=== PATIENT | female | born 1990 | race Caucasian/White ===

== ENCOUNTER → 2018-04-21 | Outpatient (CLI) | payer MEDICARE, MEDICAID ==
[2018-04-21 14:51] LABS: HEMOGLOBIN 11.3 G/DL (11.5-16.0); MEAN PLATELET VOLUME 10.4 FL (7.4-10.4); RED BLOOD COUNT 4.5 10^6/uL (4.35-5.85); RED CELL DISTRIBUTION WIDTH 17.2 % (10.0-14.5); WHITE BLOOD COUNT 9.9 10^3/uL (4.3-11.0)
[2018-04-21 15:08] LABS: ALANINE AMINOTRANSFERASE 21 U/L (0-55); ALKALINE PHOSPHATASE 227 U/L (40-136); BILIRUBIN,TOTAL 0.2 MG/DL (0.1-1.0); BUN/CREATININE RATIO 20; CALCIUM 9.6 MG/DL (8.5-10.1); CARBON DIOXIDE 22 MMOL/L (21-32); CHLORIDE 108 MMOL/L (98-107); CREATININE SERUM 0.79 MG/DL (0.60-1.30); GFR ESTIMATED > 60; GLUCOSE 100 MG/DL (70-105); SODIUM 141 MMOL/L (135-145); TOTAL PROTEIN 7.1 GM/DL (6.4-8.2)
== END ==
LOC: LAB 14:33
PROVIDERS: ATTEND Obstetrics & Gynecology
DX: N92.0 Excessive and frequent menstruation with regular cycle (principal); N92.6 Irregular menstruation, unspecified; Z68.43 Body mass index [BMI] 50.0-59.9, adult
CPT/HCPCS: 36415; 80053; 84443; 85027

== ENCOUNTER 2018-07-30 06:47 | Day surgery (SDC) | payer MEDICARE, MEDICAID ==
[~2018-07-30] VITALS: Ht 172.7 cm; Wt 136.7 kg
[~2018-07-30 06:47] MED LIST: ASCO500C17 PO; CHOL500061 PO; FERR325T18 PO; FLUT9.9S NS; LAMO200T3 PO; LEVO75TA6 PO; LISI10TA2 PO; LORA10TA7 PO; MELA1TAB20 PO; SERT100T PO; TRAZ150T72 PO; VALA10004 PO
[2018-07-30] MEDS ORDERED: BUPIVACAINE 0.25% 30 ML (SENSORCAINE) VIAL ONE (06:52)
[2018-07-30] MEDS ORDERED: HURRICAINE EXT TUBE (BENZOCAINE) ONE (07:01)
[2018-07-30] MEDS ORDERED: DEXAMETHASONE 10 MG/ML (DECADRON) 1 ML VIAL ONE (07:01)
[2018-07-30] MEDS ORDERED: proPOfol 200 MG/20 ML (DIPRIVAN) VIAL IV ONE (07:01)
[2018-07-30] MEDS ORDERED: LACTATED RINGERS 1,000 ML IV ONE ×2 (07:01→07:23)
[2018-07-30] MEDS ORDERED: LIDOCAINE PF 2% 5 ML (XYLOCAINE) VIAL ONE ×2 (07:01→07:07)
[2018-07-30] MEDS ORDERED: SEVOFLURANE (ULTANE) 15 ML INHAL SOLN ONE ×8 (07:01→09:38)
[2018-07-30] MEDS ORDERED: MIDAZOLAM 2 MG/2 ML (VERSED) VIAL ONE (07:02)
[2018-07-30] MEDS ORDERED: fentaNYL INJECTION 100 MCG/2 ML AMP ONE (07:02)
[2018-07-30] MEDS ORDERED: ATRACURIUM 50 MG/5 ML (TRACRIUM) IV ONE (07:04)
[2018-07-30] MEDS ORDERED: metroNIDAZOLE 500MG/100ML IVPB 100 ML ONE (07:13)
[2018-07-30] MEDS ORDERED: CLINDAMYCIN 900 MG/50 ML IVPB 50 ML IV ONE ×2 (07:13→07:30)
[2018-07-30 07:15] VITALS: BP 133/80
[2018-07-30] MEDS ORDERED: LACTATED RINGERS 1,000 ML IV PRN (07:23)
[2018-07-30] MEDS ORDERED: metroNIDAZOLE 500MG/100ML IVPB 100 ML IV ONE (07:30)
--- NOTE | 2018-07-30 07:50 | Progress Note-Pre Operative ---
Pre-Operative Progress Note H&P Reviewed The H&P was reviewed, patient examined and no changes noted. Date Seen by Provider: Jul 30, 2018 Time Seen by Provider: 07:50 Date H&P Reviewed: Jul 30, 2018 Time H&P Reviewed: 07:50 Pre-Operative Diagnosis: AUB, Mental handicap, BMI 49 GRICEL HEATH DO Jul 30, 2018 7:50 am
--- OUTSIDE RECORDS SUMMARY | 2018-07-30 07:50 | XMS REPORT ---
Author Author PERRYMAE Brewster Organization [facility] Address [address] [place] [address] Care Team Providers Care Radio Host Name Role Phone MAE PERRY Unavailable PROBLEMS Type Condition ICD9-CM Code [id number] Code Onset Dates Condition Status SNOMED Code Problem Seasonal allergic rhinitis due to pollen J30.1 Active 58606858 Problem Autism F84.0 Active 398718500 Problem Recurrent major depressive disorder, in partial remission F33.41 Active 14758253 Problem Adenoma determined by biopsy of liver D13.4 Active 059630928 Problem Body mass index (BMI) of 50-59.9 in adult Z68.43 Active 151636864 Problem Morbid (severe) obesity due to excess calories E66.01 Active 838663722 Problem Hirsutism L68.0 Active 076475104 Problem Essential hypertension I10 Active 65027574 Problem Seizure disorder G40.909 Active 630606016 Problem Acanthosis nigricans L83 Active 468481154 Problem Acquired hypothyroidism E03.9 Active 897372646 ALLERGIES Substance Reaction Event Type Date Status Cefaclor rash Drug Allergy March, Active ENCOUNTERS Encounter Location Date Diagnosis [facility] [address] [facility] [id number] [place] [address] [id number] Aug, [facility] [id number] [place] [address] 00943- 2225 May, Acute nasopharyngitis J00 and BMI 45.0-49.9, adult Z68.42 [facility] [id number] [place] [address] [id number] May, Dental examination Z01.20 [facility] [address] [place] [address] 13958- 6092 March, Essential hypertension I10 ; Acquired hypothyroidism E03.9 ; Recurrent major depressive disorder, in partial remission F33.41 ; Seizure disorder G40.909 ; Autism F84.0 ; Morbid (severe) obesity due to excess calories E66.01 ; Seasonal allergic rhinitis due to pollen J30.1 ; Adenoma determined by biopsy of liver D13.4 and Contact dermatitis, unspecified contact dermatitis type, unspecified trigger L25.9 [place] [id number] [place] [address] 90575- 6336 March, [place] [address] [address]- [address]86 March, Contact dermatitis, unspecified contact dermatitis type, unspecified trigger L25.9 and BMI 50.0-59.9, adult Z68.43 [place] [address] 7[address]71- 9164 March, [place] [address] 16761- 5466 Mar, [place] [address] 62799- 3339 Mar, Sore throat J02.9 ; Strep pharyngitis J02.0 and BMI 45.0- 49.9, adult Z68.42 [place] [id number] [place] [address] 73873- 2460 Jan, Seizure disorder G40.909 [place] [id number] [place] [address] 14909- 0062 Jan, [place] [address] [address] [id number] [place] [address] 48502- 8417 Jan, Diarrhea, unspecified type R19.7 [place] [address] 96396- 0728 Jan, Diarrhea, unspecified type R19.7 and BMI 50.0-59.9, adult Z68.43 [facility] [id number] [place] [address] 89749 -2959 12 Mar, 2018 Drug side effects T88.7XXA ; Diarrhea, unspecified type R19.7 and BMI 50.0-59.9, adult Z68.43 [place] [address] [place] [address] [id number]- 0949 Jan, [place] [address] [address]62- 2035 Jan, Dental examination Z01.20 [place] [address] 19836- 7802 06 Jan, 2018 Seasonal allergic rhinitis due to pollen J30.1 [place] [address] 14686- 8268 Jan, Acute non-recurrent maxillary sinusitis J01.00 and Acute suppurative otitis media of right ear without spontaneous rupture of tympanic membrane, recurrence not specified H66.001 [place] [address] 82073- 0664 Jan, Seizure disorder G40.909 [place] [address] 38182- 1310 Jan, Essential hypertension I10 ; Seizure disorder G40.909 ; Acquired hypothyroidism E03.9 ; Morbid (severe) obesity due to excess calories E66.01 ; Screening for diabetes mellitus Z13.1 ; Hirsutism L68.0 and Acanthosis nigricans L83 [place] [address] 12[address]- 6555 05 Jan, 2018 Essential hypertension I10 ; Seizure disorder G40.909 ; Acquired hypothyroidism E03.9 ; Autism F84.0 ; Recurrent major depressive disorder, in partial remission F33.41 ; Adenoma determined by biopsy of liver D13.4 ; Body mass index (BMI) of 50-59.9 in adult Z68.43 ; Morbid (severe) obesity due to excess calories E66.01 ; Seasonal allergic rhinitis due to pollen J30.1 ; Screening for diabetes mellitus Z13.1 ; Encounter for immunization Z23 ; Hirsutism L68.0 and Acanthosis nigricans L83 [facility] [address] [facility] [id number] [place] [address] Jan, IMMUNIZATIONS Vaccine Route Administration Date Status DEPO MEDROL 40 MG/ML IM Intramuscular April 24, 2018 Administered SOCIAL HISTORY Never Assessed REASON FOR VISIT c/o rash worsening and spreading more, 1 week ago, had a cream rx and it is not helping PLAN OF CARE Activity Details Follow Up 3 Months, prn Reason:CHM/HTN VITAL SIGNS Height 65 in 2018-04-24 Weight 300.6 lbs 2018-04-24 Temperature 98.4 degrees Fahrenheit 2018-04-24 Heart Rate 84 bpm 2018-04-24 Respiratory Rate 20 2018-04-24 BMI 50.02 kg/m2 2018-04-24 Blood pressure systolic 115 mmHg 2018-04-24 Blood pressure diastolic 84 mmHg 2018-04-24 MEDICATIONS Medication Instructions Dosage Frequency Start Date End Date Duration Status Lamictal 200 mg Orally Twice a day 1 tablet 12h Active Loratadine 10 mg Orally Once a day 1 tablet 24h Jan, Active Zoloft 100 mg Orally Once a day 2 tablets 24h Active Levothyroxine Sodium 75 MCG Orally Once a day 1 tablet on an empty stomach in the morning 24h Active Vitamin D 1000 UNIT Orally Once a day 1 tablet 24h Active Triamcinolone Acetonide 0.025 % Externally Twice a day 1 application to affected area 12h March, 10 days Active Melatonin 10 MG Orally at bedtime 1 tablet Active Ibuprofen 800 MG Orally Three times a day PRN 1 tablet with food or milk as needed Active Fluticasone Propionate 50 MCG/ACT Nasally Once a day 1 spray in each nostril 24h Jan, Active Clobetasol Propionate 0.05 % Externally Twice a day apply thin layer to rash 12h March, May, 07 days Active Valtrex 1 GM Orally as needed 1 tablet May, 30 days Active Lisinopril 10 MG Orally Once a day 1 tablet 24h Active Multi For Her Active Trazodone HCl 150 MG Orally at hs 2 Active RESULTS No Results PROCEDURES Procedure Date Ordered Result Body Site DEPO MEDROL 40 MG/ML April 24, 2018 THER/PROPH/DIAG INJ, SC/IM April 24, 2018 [facility] VISIT ESTABLISHED PATIENT April 24, 2018 INSTRUCTIONS MEDICATIONS ADMINISTERED No Known Medications MEDICAL (GENERAL) HISTORY Type Description Date Medical History autism Medical History IDD (special needs) Medical History migraine headaches Medical History seizures Medical History seasonal allergies Medical History liver adenomas- last CT 03/2016- scattered lesions right and left lobes Medical History hypertension Medical History Hypothyroidism Medical History depression Surgical History tonsillectomy and adenoidectomy Surgical History dilatation and curettage 2013 Hospitalization History Surgery(s)
--- OUTSIDE RECORDS SUMMARY | 2018-07-30 07:50 | XMS REPORT ---
Author Author PERRYMAE Brewster Organization [facility] Address [address] [place] [address] Care Team Providers Care Polytechnic Teacher Name Role Phone MAE PERRY Unavailable PROBLEMS Type Condition ICD9-CM Code VES49-MS Code Onset Dates Condition Status SNOMED Code Problem Seasonal allergic rhinitis due to pollen J30.1 Active 98666331 Problem Autism F84.0 Active 096252370 Problem Recurrent major depressive disorder, in partial remission F33.41 Active 02794988 Problem Adenoma determined by biopsy of liver D13.4 Active 615561962 Problem Body mass index (BMI) of 50-59.9 in adult Z68.43 Active 057762506 Problem Morbid (severe) obesity due to excess calories E66.01 Active 159449324 Problem Hirsutism L68.0 Active 379994848 Problem Essential hypertension I10 Active 99456580 Problem Seizure disorder G40.909 Active 375238462 Problem Acanthosis nigricans L83 Active 393067153 Problem Acquired hypothyroidism E03.9 Active 416694260 ALLERGIES No Information ENCOUNTERS Encounter Location Date Diagnosis [facility] [id number] [place] [address] [id number] Aug, [facility] [id number] [place] [address] 73504- 4176 May, Acute nasopharyngitis J00 and BMI 45.0-49.9, adult Z68.42 [facility] [address] [id number] May, Dental examination Z01.20 [facility] [address] [address]- [address] March, Essential hypertension I10 ; Acquired hypothyroidism E03.9 ; Recurrent major depressive disorder, in partial remission F33.41 ; Seizure disorder G40.909 ; Autism F84.0 ; Morbid (severe) obesity due to excess calories E66.01 ; Seasonal allergic rhinitis due to pollen J30.1 ; Adenoma determined by biopsy of liver D13.4 and Contact dermatitis, unspecified contact dermatitis type, unspecified trigger L25.9 [place] [id number] [place] [address] 49293- 7393 March, [place] [id number] [place] [address] 23487- 8583 March, Contact dermatitis, unspecified contact dermatitis type, unspecified trigger L25.9 and BMI 50.0-59.9, adult Z68.43 [place] [address] [address]32- 3655 March, [place] [id number] [place] [address] 71847- 9068 Mar, [place] [address] 70401- 9584 Mar, Sore throat J02.9 ; Strep pharyngitis J02.0 and BMI 45.0- 49.9, adult Z68.42 [place] [id number] [place] [address] 51634- 4975 Jan, Seizure disorder G40.909 [place] [id number] [place] [address] 00460- 6527 Jan, [place] [id number] [place] [address] 98717- 3554 Jan, Diarrhea, unspecified type R19.7 [place] [id number] [place] [address] 55831- 7482 Jan, Diarrhea, unspecified type R19.7 and BMI 50.0-59.9, adult Z68.43 [facility] [address] [place] [address] 69995 -0172 Jan, Drug side effects T88.7XXA ; Diarrhea, unspecified type R19.7 and BMI 50.0-59.9, adult Z68.43 [place] [id number] [place] [address] 99919- 2410 Jan, [place] [address] 98552- 3446 Jan, Dental examination Z01.20 [place] [address] 53150- 4631 06 Jan, 2018 Seasonal allergic rhinitis due to pollen J30.1 [place] [address] 84477- 9493 Jan, Acute non-recurrent maxillary sinusitis J01.00 and Acute suppurative otitis media of right ear without spontaneous rupture of tympanic membrane, recurrence not specified H66.001 [place] [address] 48325- 2418 Jan, Seizure disorder G40.909 [place] [address] 69319- 4142 Jan, Essential hypertension I10 ; Seizure disorder G40.909 ; Acquired hypothyroidism E03.9 ; Morbid (severe) obesity due to excess calories E66.01 ; Screening for diabetes mellitus Z13.1 ; Hirsutism L68.0 and Acanthosis nigricans L83 [place] [id number] [place] [address] 67103- 7466 05 Jan, 2018 Essential hypertension I10 ; [...] ; Hirsutism L68.0 and Acanthosis nigricans L83 [place] [address] [phone] Jan, IMMUNIZATIONS No Known Immunizations SOCIAL HISTORY Never Assessed REASON FOR VISIT PLAN OF CARE VITAL SIGNS MEDICATIONS Medication Instructions Dosage Frequency Start Date End Date Duration Status Triamcinolone Acetonide 0.025 % Externally Twice a day 1 application to affected area 12h 18 Mar, 2018 10 days Active RESULTS No Results PROCEDURES No Known procedures INSTRUCTIONS MEDICATIONS ADMINISTERED No Known Medications MEDICAL [...]
--- OUTSIDE RECORDS SUMMARY | 2018-07-30 07:50 | XMS REPORT ---
Author Author TORYSRIKANTH HERRERA Victoriano [facility] Address Unknown Care Team Providers Care Wildfire Prevention Specialist Name Role Phone SRIKANTH LERMA Unavailable PROBLEMS Type Condition ICD9-CM Code TXD00-DN Code Onset Dates Condition Status SNOMED Code Problem Autism F84.0 Active 763477082 Problem Essential hypertension I10 Active 15965658 Problem Seizure disorder G40.909 Active 073861591 Problem Body mass index (BMI) of 50-59.9 in adult Z68.43 Active 637303863 Problem Seasonal allergic rhinitis due to pollen J30.1 Active 52143871 Problem Recurrent major depressive disorder, in partial remission F33.41 Active 15496264 Problem Body mass index (BMI) of 45.0-49.9 in adult Z68.42 Active 181055164 Problem Adenoma determined by biopsy of liver D13.4 Active 141183733 Problem Acanthosis nigricans L83 Active 153814504 Problem Acquired hypothyroidism E03.9 Active 441177260 Problem Morbid (severe) obesity due to excess calories E66.01 Active 272840678 Problem Hirsutism L68.0 Active 884866377 ALLERGIES Substance Reaction Event Type Date Status Cefaclor rash Drug Allergy May, Active ENCOUNTERS Encounter Location Date Diagnosis [facility] [address] [facility] [id number] [id number] Aug, [facility] [address] [id number] [address] Jul, Seasonal allergic rhinitis due to pollen J30.1 ; Body mass index (BMI) of 45.0-49.9 in adult Z68.42 and Morbid (severe) obesity due to excess calories E66.01 [facility] [address] [id number] [address]- [address] May, Acute nasopharyngitis J00 and BMI 45.0-49.9, adult Z68.42 [facility] [address] [id number] [phone] May, 2018 Dental examination Z01.20 [place] [id number] [place] [address] 32071- 8554 March, Essential hypertension I10 ; Acquired hypothyroidism E03.9 ; Recurrent major depressive disorder, in partial remission F33.41 ; Seizure disorder G40.909 ; Autism F84.0 ; Morbid (severe) obesity due to excess calories E66.01 ; Seasonal allergic rhinitis due to pollen J30.1 ; Adenoma determined by biopsy of liver D13.4 and Contact dermatitis, unspecified contact dermatitis type, unspecified trigger L25.9 [place] [id number] [place] [address] 51956- 1596 March, [place] [id number] [place] [address] 30828- 3711 March, Contact dermatitis, unspecified contact dermatitis type, unspecified trigger L25.9 and BMI 50.0-59.9, adult Z68.43 [place] [id number] [place] [address] 16079- 6296 March, [place] [id number] [place] [address] 17078- 9252 Mar, [place] [id number] [place] [address] 78150- 2165 Mar, Sore throat J02.9 ; Strep pharyngitis J02.0 and BMI 45.0- 49.9, adult Z68.42 [place] [address] [place] [address] 52015- 8667 Jan, Seizure disorder G40.909 [place] [id number] [place] [address] 81667- 2666 Jan, [place] [id number] [place] [address] 88202- 7302 Jan, Diarrhea, unspecified type R19.7 [place] [id number] [place] [address] 81799- 5324 14 Jan, 2018 Diarrhea, unspecified type R19.7 and BMI 50.0-59.9, adult Z68.43 [facility] [id number] [place] [address] 78702 -2147 12 Jan, 2018 Drug side effects T88.7XXA ; Diarrhea, unspecified type R19.7 and BMI 50.0-59.9, adult Z68.43 [place] [id number] [place] [address] 73115- 6009 12 Jan, 2018 [place] [address] 27392- 5011 08 Jan, 2018 Dental examination Z01.20 [place] [address] 38089- 1760 06 Jan, 2018 Seasonal allergic rhinitis due to pollen J30.1 [place] [address] 94690- 7834 05 Jan, 2018 Acute non-recurrent maxillary sinusitis J01.00 and Acute suppurative otitis media of right ear without spontaneous rupture of tympanic membrane, recurrence not specified H66.001 [place] [id number] [place] [address] 27503- 2988 12 Jan, 2018 Seizure disorder G40.[address] [address]- [address]179 Jan, Essential hypertension I10 ; Seizure disorder G40.909 ; Acquired hypothyroidism E03.9 ; Morbid (severe) obesity due to excess calories E66.01 ; Screening for diabetes mellitus Z13.1 ; Hirsutism L68.0 and Acanthosis nigricans L83 [place] [id number] [place] [address] 12240- 9292 05 Jan, 2018 Essential hypertension I10 ; [...] ; Hirsutism L68.0 and Acanthosis nigricans L83 [facility] [address] [facility]] [id number] [place] [address]- 49[address] 02 Jan, 2018 IMMUNIZATIONS No Known Immunizations SOCIAL HISTORY Never Assessed REASON FOR VISIT GRAZYNA / FILLING - #31 PLAN OF CARE Activity Details Follow Up prn Reason:# 31 Dr Lerma would like to use [facility] VITAL SIGNS Height 65 in 2018-05-15 Blood pressure systolic 120 mmHg 2018-05-15 Blood pressure diastolic 70 mmHg 2018-05-15 MEDICATIONS Medication Instructions Dosage Frequency Start Date End Date Duration Status Lisinopril 10 MG Orally Once a day 1 tablet 24h Active Ibuprofen 800 MG Orally Three times a day PRN 1 tablet with food or milk as needed Active Multi For Her Active Levothyroxine Sodium 75 MCG Orally Once a day 1 tablet on an empty stomach in the morning 24h Active Fluticasone Propionate 50 MCG/ACT Nasally Once a day 1 spray in each nostril 24h Jan, Active Lamictal 200 mg Orally Twice a day 1 tablet 12h Active Melatonin 10 MG Orally at bedtime 1 tablet Active Triamcinolone Acetonide 0.025 % Externally Twice a day 1 application to affected area 12h March, 10 days Active Valtrex 1 GM Orally as needed 1 tablet May, 30 days Active Trazodone HCl 150 MG Orally at hs 2 30 Active Vitamin D 1000 UNIT Orally Once a day 1 tablet 24h Active Zoloft 100 mg Orally Once a day 2 tablets 24h Active Loratadine 10 mg Orally Once a day 1 tablet 24h 90 Active RESULTS No Results PROCEDURES Procedure Date Ordered Result Body Site COMP ORAL EVALUATION - NEW/EST PT May 15, 2018 INSTRUCTIONS MEDICATIONS ADMINISTERED No Known Medications [...] adenoidectomy Surgical History dilatation and curettage 2013 Surgical History colonoscopy/EGD 2018 Hospitalization History Surgery(s)
--- NOTE | 2018-07-30 07:51 | Discharge Inst-Women's Service ---
Discharge Inst-Women's Serv Depart Medication/Instructions New, Converted or Re-Newed RX: RX on Chart Consults/Follow Up Additional Follow Up: Yes Orders/Referrals Dr. Cristobal in 7-10 days and in 8 weeks Activity Activity: Activity as Tolerated Driving Instructions: No Driving for 1 Week NO SMOKING: NO SMOKING Nothing Inside Vagina: No Douching, No Golovin, No Tampons Diet Discharge Diet: No Restrictions Symptoms to Report to : Bleeding Excessive, Pain Increased, Fever Over 101 Degrees F, Vaginal Bleeding Increase, Questions/Concerns For Any Problems or Questions: Contact Your Physician Skin/Wound Care Infection Signs and Symptoms: Increased Redness, Foul Odor of Wound, Increased Drainage, Skin Itchy or Has a Rash, Increased Swelling, Temperature Above 101 F Operative Area Clean and Dry: Keep Incision Clean/Dry Stitches/Aleisha/Dermabond: Dermabond, Care of Stitches Bathing Instructions: GRICEL Beebe DO Jul 30, 2018 7:51 am
--- OUTSIDE RECORDS SUMMARY | 2018-07-30 07:51 | XMS REPORT ---
Author Author PERRYMAE Brewster Organization [facility] Address [address] [place] [address] Care Team Providers Care Injection Mold Technician Name Role Phone MAE PERRY Unavailable PROBLEMS Type Condition ICD9-CM Code MTT17-ZG Code Onset Dates Condition Status SNOMED Code Problem Seasonal allergic rhinitis due to pollen J30.1 Active 67775708 Problem Autism F84.0 Active 071503190 Problem Recurrent major depressive disorder, in partial remission F33.41 Active 82305645 Problem Adenoma determined by biopsy of liver D13.4 Active 930538579 Problem Body mass index (BMI) of 50-59.9 in adult Z68.43 Active 451501747 Problem Morbid (severe) obesity due to excess calories E66.01 Active 179394649 Problem Hirsutism L68.0 Active 805708823 Problem Essential hypertension I10 Active 82161102 Problem Seizure disorder G40.909 Active 774492532 Problem Acanthosis nigricans L83 Active 863683871 Problem Acquired hypothyroidism E03.9 Active 152057318 ALLERGIES No Information ENCOUNTERS Encounter Location Date Diagnosis [facility] [id number] [place] [id number] Aug, [facility] [id number] [place] [address] [id number] May, [facility] [id number] [place] [address] 38269- 4869 May, Acute nasopharyngitis J00 and BMI 45.0-49.[address], [address] [facility] [id number] [place] [address] [id number] May, Dental examination Z01.20 [facility] [address] [place] [address] 52474- 8894 25 May, 2018 Essential hypertension I10 ; Acquired hypothyroidism E03.9 ; Recurrent major depressive disorder, in partial remission F33.41 ; Seizure disorder G40.909 ; Autism F84.0 ; Morbid (severe) obesity due to excess calories E66.01 ; Seasonal allergic rhinitis due to pollen J30.1 ; Adenoma determined by biopsy of liver D13.4 and Contact dermatitis, unspecified contact dermatitis type, unspecified trigger L25.9 [place] [address] [address]- 3881 March, [place] [address] 83675- 1394 March, Contact dermatitis, unspecified contact dermatitis type, unspecified trigger L25.9 and BMI 50.0-59.9, adult Z68.43 [place] [id number] [place] [address] 91064- 2269 March, [place] [address] 38144- 0573 Mar, [place] [address] 17911- 8114 Mar, Sore throat J02.9 ; Strep pharyngitis J02.0 and BMI 45.0- 49.9, adult Z68.42 [place] [id number] [place] [address] 54217- 1222 Jan, Seizure disorder G40.909 [place] [id number] [place] [address] 94683- 0294 Jan, [place] [address] 82527- 2785 Jan, Diarrhea, unspecified type R19.7 [place] [address] 11336- 3941 Jan, Diarrhea, unspecified type R19.7 and BMI 50.0-59.9, adult Z68.43 [facility] [address] 8[address] -[address]84 Jan, Drug side effects T88.7XXA ; Diarrhea, unspecified type R19.7 and BMI 50.0-59.9, adult Z68.43 [place] [id number] [place] [address] 63635- 1347 Jan, [place] [address] 78264- 4755 08 Jan, 2018 Dental examination Z01.20 [place] [address] 19831- 1904 06 Jan, 2018 Seasonal allergic rhinitis due to pollen J30.1 [place] [address] 86366- 4849 05 Jan, 2018 Acute non-recurrent maxillary sinusitis J01.00 and Acute suppurative otitis media of right ear without spontaneous rupture of tympanic membrane, recurrence not specified H66.001 [place] [id number] [place] [address] 76484- 6992 Jan, Seizure disorder G40.909 [place] [address] 78557- 2739 Jan, Essential hypertension I10 ; Seizure disorder G40.909 ; Acquired hypothyroidism E03.9 ; Morbid (severe) obesity due to excess calories E66.01 ; Screening for diabetes mellitus Z13.1 ; Hirsutism L68.0 and Acanthosis nigricans L83 [place] [id number] [place] [address] 57580- 8021 05 Jan, 2018 Essential hypertension I10 ; [...] ; Hirsutism L68.0 and Acanthosis nigricans L83 [facility] [address] [facility] [id number] [place] [address] Jan, IMMUNIZATIONS No Known Immunizations SOCIAL HISTORY Never Assessed REASON FOR VISIT Prior Authorization PLAN OF CARE VITAL SIGNS MEDICATIONS Unknown Medications RESULTS No Results PROCEDURES No Known procedures [...]
--- OUTSIDE RECORDS SUMMARY | 2018-07-30 07:51 | XMS REPORT ---
Author Author PERRYMAE Brewster Organization [facility] Address [address] [place] [address] Care Team Providers Care Physician'S Assistant Name Role Phone MAE PERRY Unavailable PROBLEMS Type Condition ICD9-CM Code [id number] Code Onset Dates Condition Status SNOMED Code Problem Seasonal allergic rhinitis due to pollen J30.1 Active 40766205 Problem Autism F84.0 Active 804408886 Problem Recurrent major depressive disorder, in partial remission F33.41 Active 74118390 Problem Adenoma determined by biopsy of liver D13.4 Active 996976906 Problem Body mass index (BMI) of 50-59.9 in adult Z68.43 Active 775028619 Problem Morbid (severe) obesity due to excess calories E66.01 Active 813031015 Problem Hirsutism L68.0 Active 608861563 Problem Essential hypertension I10 Active 63494812 Problem Seizure disorder G40.909 Active 912137257 Problem Acanthosis nigricans L83 Active 071856213 Problem Acquired hypothyroidism E03.9 Active 891642300 ALLERGIES No Information ENCOUNTERS Encounter Location Date Diagnosis [facility] [id number] [place] [address] [id number] Aug, [facility] [id number] [place] [address] 13378- 4910 May, Acute nasopharyngitis J00 and BMI 45.0-49.9, adult Z68.42 [facility] [address] [id number] May, Dental examination Z01.20 [facility] [address] 15197- 1194 March, Essential hypertension I10 ; Acquired hypothyroidism E03.9 ; Recurrent major depressive disorder, in partial remission F33.41 ; Seizure disorder G40.909 ; Autism F84.0 ; Morbid (severe) obesity due to excess calories E66.01 ; Seasonal allergic rhinitis due to pollen J30.1 ; Adenoma determined by biopsy of liver D13.4 and Contact dermatitis, unspecified contact dermatitis type, unspecified trigger L25.9 [place] [id number] [place] [address] 10413- 7476 March, [place] [id number] [place] [address] 59184- 4010 March, Contact dermatitis, unspecified contact dermatitis type, unspecified trigger L25.9 and BMI 50.0-59.9, adult Z68.43 [place] [address] 53957- 0277 March, [place] [address] [place] [id number] [place] [address] 38332- 6693 Mar, [place] [address] 15963- 0953 Mar, Sore throat J02.9 ; Strep pharyngitis J02.0 and BMI 45.0- 49.9, adult Z68.42 [place] [id number] [place] [address] 62295- 3164 Jan, Seizure disorder G40.909 [place] [id number] [place] [address] 07884- 8527 Jan, [place] [id number] [place] [address] 39079- 7535 Jan, Diarrhea, unspecified type R19.7 [place] [id number] [place] [address] 26535- 7417 Jan, Diarrhea, unspecified type R19.7 and BMI 50.0-59.9, adult Z68.43 [facility] [address] [place] [address] 09136 -8363 Jan, Drug side effects T88.7XXA ; Diarrhea, unspecified type R19.7 and BMI 50.0-59.9, adult Z68.43 [place] [id number] [place] [address] 27463- 9980 Jan, [place] [address] 56157- 7845 Jan, Dental examination Z01.20 [place] [address] 81685- 8619 06 Jan, 2018 Seasonal allergic rhinitis due to pollen J30.1 [place] [address] 41222- 7253 Jan, Acute non-recurrent maxillary sinusitis J01.00 and Acute suppurative otitis media of right ear without spontaneous rupture of tympanic membrane, recurrence not specified H66.001 [place] [address] 63192- 6068 Jan, Seizure disorder G40.909 [place] [address] 19103- 3967 Jan, Essential hypertension I10 ; Seizure disorder G40.909 ; Acquired hypothyroidism E03.9 ; Morbid (severe) obesity due to excess calories E66.01 ; Screening for diabetes mellitus Z13.1 ; Hirsutism L68.0 and Acanthosis nigricans L83 [place] [id number] [place] [address] 23146- 9218 05 Jan, 2018 Essential hypertension I10 ; [...] ; Hirsutism L68.0 and Acanthosis nigricans L83 [place] [address] [phone]- 9011 Jan, IMMUNIZATIONS No Known Immunizations SOCIAL HISTORY Never Assessed REASON FOR VISIT referral PLAN OF CARE VITAL SIGNS MEDICATIONS Unknown [...]
--- OUTSIDE RECORDS SUMMARY | 2018-07-30 07:51 | XMS REPORT ---
Author Author PERRYMAE Brewster Organization [facility] Address [address] [place] [address] Care Team Providers Care Juice Weigher Name Role Phone MAE PERRY Unavailable PROBLEMS Type Condition ICD9-CM Code KCS39-MP Code Onset Dates Condition Status SNOMED Code Problem Seasonal allergic rhinitis due to pollen J30.1 Active 85368654 Problem Autism F84.0 Active 136392354 Problem Recurrent major depressive disorder, in partial remission F33.41 Active 85439954 Problem Adenoma determined by biopsy of liver D13.4 Active 577481191 Problem Body mass index (BMI) of 50-59.9 in adult Z68.43 Active 591030932 Problem Morbid (severe) obesity due to excess calories E66.01 Active 397454601 Problem Hirsutism L68.0 Active 921581708 Problem Essential hypertension I10 Active 70985209 Problem Seizure disorder G40.909 Active 916463135 Problem Acanthosis nigricans L83 Active 106660713 Problem Acquired hypothyroidism E03.9 Active 253793204 ALLERGIES No Information ENCOUNTERS Encounter Location Date Diagnosis [facility] [id number] [place] [address] [id number] Aug, [facility] [id number] [place] [address] 15729- 1800 May, Acute nasopharyngitis J00 and BMI 45.0-49.9, adult Z68.42 [facility] [address] [id number] May, Dental examination Z01.20 [facility] [address] 91695- 8823 March, Essential hypertension I10 ; Acquired hypothyroidism E03.9 ; Recurrent major depressive disorder, in partial remission F33.41 ; Seizure disorder G40.909 ; Autism F84.0 ; Morbid (severe) obesity due to excess calories E66.01 ; Seasonal allergic rhinitis due to pollen J30.1 ; Adenoma determined by biopsy of liver D13.4 and Contact dermatitis, unspecified contact dermatitis type, unspecified trigger L25.9 [place] [id number] [place] [address] 83147- 6261 March, [place] [id number] [place] [address] 41683- 5722 March, Contact dermatitis, unspecified contact dermatitis type, unspecified trigger L25.9 and BMI 50.0-59.9, adult Z68.43 [place] [address] 85788- 9683 March, [place] [id number] [place] [address] 60259- 4103 Mar, [place] [address] 14357- 7440 Mar, Sore throat J02.9 ; Strep pharyngitis J02.0 and BMI 45.0- 49.9, adult Z68.42 [place] [id number] [place] [address] 65275- 0520 Jan, Seizure disorder G40.909 [place] [id number] [place] [address] 51424- 2848 Jan, [place] [id number] [place] [address] 89449- 9895 Jan, Diarrhea, unspecified type R19.7 [place] [id number] [place] [address] 28028- 8115 Jan, Diarrhea, unspecified type R19.7 and BMI 50.0-59.9, adult Z68.43 [facility] [address] [place] [address] 81438 -2166 Jan, Drug side effects T88.7XXA ; Diarrhea, unspecified type R19.7 and BMI 50.0-59.9, adult Z68.43 [place] [id number] [place] [address] 30288- 1851 Jan, [place] [address] 29243- 5718 Jan, Dental examination Z01.20 [place] [address] 52819- 6672 06 Jan, 2018 Seasonal allergic rhinitis due to pollen J30.1 [place] [address] 66155- 2891 Jan, Acute non-recurrent maxillary sinusitis J01.00 and Acute suppurative otitis media of right ear without spontaneous rupture of tympanic membrane, recurrence not specified H66.001 [place] [address] 97892- 5058 Jan, Seizure disorder G40.909 [place] [address] 96464- 0657 Jan, Essential hypertension I10 ; Seizure disorder G40.909 ; Acquired hypothyroidism E03.9 ; Morbid (severe) obesity due to excess calories E66.01 ; Screening for diabetes mellitus Z13.1 ; Hirsutism L68.0 and Acanthosis nigricans L83 [place] [id number] [place] [address] 74662- 1250 05 Jan, 2018 Essential hypertension I10 ; [...] L68.0 and Acanthosis nigricans L83 [place] [address] [phone]- 8141 Jan, IMMUNIZATIONS No Known Immunizations SOCIAL HISTORY Never Assessed REASON FOR VISIT Request letter PLAN OF CARE VITAL SIGNS MEDICATIONS Unknown [...]
--- OUTSIDE RECORDS SUMMARY | 2018-07-30 07:51 | XMS REPORT ---
Author Author PERRYMAE Brewster Organization [facility] Address [address] [place] [address] Care Team Providers Care Hvac Operations Technician Name Role Phone MAE PERRY Unavailable PROBLEMS Type Condition ICD9-CM Code [id number] Code Onset Dates Condition Status SNOMED Code Problem Seasonal allergic rhinitis due to pollen J30.1 Active 52797924 Problem Autism F84.0 Active 384601376 Problem Recurrent major depressive disorder, in partial remission F33.41 Active 17298976 Problem Adenoma determined by biopsy of liver D13.4 Active 739243673 Problem Body mass index (BMI) of 50-59.9 in adult Z68.43 Active 575136781 Problem Morbid (severe) obesity due to excess calories E66.01 Active 626358710 Problem Hirsutism L68.0 Active 149774925 Problem Essential hypertension I10 Active 97698284 Problem Seizure disorder G40.909 Active 450093651 Problem Acanthosis nigricans L83 Active 424570808 Problem Acquired hypothyroidism E03.9 Active 815830302 ALLERGIES Substance Reaction Event Type Date Status Cefaclor rash Drug Allergy March, Active ENCOUNTERS Encounter Location Date Diagnosis [facility] [address] [place] [address] [id number] Aug, [facility] [address] [place] [address] 71516- 1785 May, Acute nasopharyngitis J00 and BMI 45.0-49.9, adult Z68.42 [facility] [id number] [place] [address] [id number] May, Dental examination Z01.20 [facility] [address] [place] [address] 94800- 9546 March, Essential hypertension I10 ; Acquired hypothyroidism E03.9 ; Recurrent major depressive disorder, in partial remission F33.41 ; Seizure disorder G40.909 ; Autism F84.0 ; Morbid (severe) obesity due to excess calories E66.01 ; Seasonal allergic rhinitis due to pollen J30.1 ; Adenoma determined by biopsy of liver D13.4 and Contact dermatitis, unspecified contact dermatitis type, unspecified trigger L25.9 [place] [id number] [place] [address] 91206- 1239 March, [place] [address] 53747- 9127 March, Contact dermatitis, unspecified contact dermatitis type, unspecified trigger L25.9 and BMI 50.0-59.9, adult Z68.43 [place] [address] 94205- 1485 March, [place] [address] 13730- 4637 Mar, [place] [address] 95570- 8200 Mar, Sore throat J02.9 ; Strep pharyngitis J02.0 and BMI 45.0- 49.9, adult Z68.42 [place] [id number] [place] [address] 69063- 5978 Jan, Seizure disorder G40.909 [place] [id number] [place] [address] 15987- 3805 Jan, [place] [id number] [place] [address] 16096- 3988 Jan, Diarrhea, unspecified type R19.7 [place] [address] 02600- 9663 Jan, Diarrhea, unspecified type R19.7 and BMI 50.0-59.9, adult Z68.43 [facility] [id number] [place] [address] 80172 -5213 12 Mar, 2018 Drug side effects T88.7XXA ; Diarrhea, unspecified type R19.7 and BMI 50.0-59.9, adult Z68.43 [place] [address] [place] [id number]- 1667 Jan, [place] [address] 82792- 9767 Jan, Dental examination Z01.20 [place] [address] 18416- 8520 06 Jan, 2018 Seasonal allergic rhinitis due to pollen J30.1 [place] [address] 84930- 5323 Jan, Acute non-recurrent maxillary sinusitis J01.00 and Acute suppurative otitis media of right ear without spontaneous rupture of tympanic membrane, recurrence not specified H66.001 [place] [address] 76842- 8378 Jan, Seizure disorder G40.909 [place] [address] 13036- 5740 Jan, Essential hypertension I10 ; Seizure disorder G40.909 ; Acquired hypothyroidism E03.9 ; Morbid (severe) obesity due to excess calories E66.01 ; Screening for diabetes mellitus Z13.1 ; Hirsutism L68.0 and Acanthosis nigricans L83 [place] [address] 23006- 8234 05 Jan, 2018 Essential hypertension I10 ; [...] ; Hirsutism L68.0 and Acanthosis nigricans L83 [facility] [address] [facility] [id number] [place] [address]- 2657 Jan, IMMUNIZATIONS No Known Immunizations SOCIAL HISTORY Never Assessed REASON FOR VISIT Itchy rash on torso x2 weeks. Liver specialist sending pt to consult for transplant in May. shoaib PLAN OF CARE Activity Details Follow Up prn Reason: Future/Pending Procedure BIOPSY SKIN LESION (SINGLE) VITAL SIGNS Height 65 in 2018-04-13 Weight 300.7 lbs 2018-04-13 Temperature 97.5 degrees Fahrenheit 2018-04-13 Heart Rate 94 bpm 2018-04-13 Respiratory Rate 22 2018-04-13 BMI 50.03 kg/m2 2018-04-13 Blood pressure systolic 120 mmHg 2018-04-13 Blood pressure diastolic 80 mmHg 2018-04-13 MEDICATIONS Medication Instructions Dosage Frequency Start Date End Date Duration Status Lamictal 200 mg Orally Twice a day 1 tablet 12h 90 days Active Trazodone HCl 150 MG Orally at hs 2 30 days Active Vitamin D 1000 UNIT Orally Once a day 1 tablet 24h Active Fluticasone Propionate 50 MCG/ACT Nasally Once a day 1 spray in each nostril 24h Jan, 30 day(s) Active Multi For Her Active Zoloft 100 mg Orally Once a day 2 tablets 24h 90 days Active Loratadine 10 mg Orally Once a day 1 tablet 24h Jan, 90 days Active Levothyroxine Sodium 75 MCG Orally Once a day 1 tablet on an empty stomach in the morning 24h 90 days Active Lisinopril 10 MG Orally Once a day 1 tablet 24h 90 days Active Valtrex 1 GM Orally as needed 1 tablet 17 May, 2018 30 days Active Ibuprofen 800 MG Orally Three times a day PRN 1 tablet with food or milk as needed Active Melatonin 10 MG Orally at bedtime 1 tablet Active RESULTS No Results PROCEDURES Procedure Date Ordered Result Body Site BIOPSY OF SKIN LESION April 13, 2018 [facility] VISIT ESTABLISHED PATIENT April 13, 2018 INSTRUCTIONS MEDICATIONS ADMINISTERED No Known Medications [...]
--- OUTSIDE RECORDS SUMMARY | 2018-07-30 07:51 | XMS REPORT ---
Author Author SHEEBA Hagan Organization [facility] Address [address] [place] [address] Care Team Providers Care Mounter Sousaphones Name Role Phone SHEEBA Hagan Unavailable PROBLEMS Type Condition ICD9-CM Code SBZ61-MK Code Onset Dates Condition Status SNOMED Code Problem Seasonal allergic rhinitis due to pollen J30.1 Active 74222536 Problem Autism F84.0 Active 346282827 Problem Recurrent major depressive disorder, in partial remission F33.41 Active 33269235 Problem Adenoma determined by biopsy of liver D13.4 Active 143274107 Problem Body mass index (BMI) of 50-59.9 in adult Z68.43 Active 701366042 Problem Morbid (severe) obesity due to excess calories E66.01 Active 793474335 Problem Hirsutism L68.0 Active 992348336 Problem Essential hypertension I10 Active 01275008 Problem Seizure disorder G40.909 Active 692155376 Problem Acanthosis nigricans L83 Active 822111517 Problem Acquired hypothyroidism E03.9 Active 578414486 ALLERGIES Substance Reaction Event Type Date Status Cefaclor rash Drug Allergy Mar, Active ENCOUNTERS Encounter Location Date Diagnosis [facility] [address] [id number] Aug, [facility] [id number] [place] [address] May, Acute nasopharyngitis J00 and BMI 45.0-49.9, adult Z68.42 [facility] [address] [place] [id number] May, Dental examination Z01.20 [facility] [address] [address] March, Essential hypertension I10 ; Acquired hypothyroidism E03.9 ; Recurrent major depressive disorder, in partial remission F33.41 ; Seizure disorder G40.909 ; Autism F84.0 ; Morbid (severe) obesity due to excess calories E66.01 ; Seasonal allergic rhinitis due to pollen J30.1 ; Adenoma determined by biopsy of liver D13.4 and Contact dermatitis, unspecified contact dermatitis type, unspecified trigger L25.9 [place] [id number] [place] [address] 21995- 2[address] March, [place] [address] [address] March, Contact dermatitis, unspecified contact dermatitis type, unspecified trigger L25.9 and BMI 50.0-59.9, adult Z68.43 [place] [id number] [place] [address] 09648- 6544 March, [place] [id number] [place] [address] 75957- 0426 Mar, [place] [id number] [place] [address] 53402- 0150 Mar, Sore throat J02.9 ; Strep pharyngitis J02.0 and BMI 45.0- 49.9, adult Z68.42 [place] [id number] [place] [address] 17828- 3266 Jan, Seizure disorder G40.909 [place] [id number] [place] [address] 62231- 2482 Jan, [place] [id number] [place] [address] 19385- 8391 Jan, Diarrhea, unspecified type R19.7 [place] [id number] [place] [address] 24334- 0355 Jan, Diarrhea, unspecified type R19.7 and BMI 50.0-59.9, adult Z68.43 [facility] [id number] [place] [address] 88786 -1158 Jan, Drug side effects T88.7XXA ; Diarrhea, unspecified type R19.7 and BMI 50.0-59.9, adult Z68.43 [place] [address] 64884- 9273 Jan, [place] [address] 78590- 3892 08 Jan, 2018 Dental examination Z01.20 [place] [address] 74588- 5221 06 Jan, 2018 Seasonal allergic rhinitis due to pollen J30.1 [place] [address] 02176- 7991 05 Jan, 2018 Acute non-recurrent maxillary sinusitis J01.00 and Acute suppurative otitis media of right ear without spontaneous rupture of tympanic membrane, recurrence not specified H66.001 [place] [address] 09598- 4144 Jan, Seizure disorder G40.909 [place] [address] 01833- 1799 Jan, Essential hypertension I10 ; Seizure disorder G40.909 ; Acquired hypothyroidism E03.9 ; Morbid (severe) obesity due to excess calories E66.01 ; Screening for diabetes mellitus Z13.1 ; Hirsutism L68.0 and Acanthosis nigricans L83 [place] [id number] [place] [address] 27725- 2790 Jan, Essential hypertension I10 ; Seizure disorder [...] ; Hirsutism L68.0 and Acanthosis nigricans L83 [facility] [address] [facility] [id number] [place] [address] Jan, IMMUNIZATIONS Vaccine Route Administration Date Status BICILLIN LA/PENICILLIN G BENZATHINE IM Intramuscular March 16, 2018 Administered SOCIAL HISTORY Never Assessed REASON FOR VISIT Sore throat WB - MA PLAN OF CARE Activity Details Follow Up prn Reason: VITAL SIGNS Height 65 in 2018-03-16 Weight 297 lbs 2018-03-16 Temperature 98.7 degrees Fahrenheit 2018-03-16 Heart Rate 96 bpm 2018-03-16 Respiratory Rate 18 2018-03-16 BMI 49.42 kg/m2 2018-03-16 Blood pressure systolic 108 mmHg 2018-03-16 Blood pressure diastolic 72 mmHg 2018-03-16 MEDICATIONS Medication Instructions Dosage Frequency Start Date End Date Duration Status Ibuprofen 800 MG Orally Three times a day PRN 1 tablet with food or milk as needed Active Lamictal 200 mg Orally Twice a day 1 tablet 12h 90 days Active Vitamin D 1000 UNIT Orally Once a day 1 tablet 24h Active Loratadine 10 mg Orally Once a day 1 tablet 24h Jan, 90 days Active Levothyroxine Sodium 75 MCG Orally Once a day 1 tablet on an empty stomach in the morning 24h 90 days Active Valtrex 1 GM Orally as needed 1 tablet May, 30 days Active Multi For Her Active Melatonin 10 MG Orally at bedtime 1 tablet Active Fluticasone Propionate 50 MCG/ACT Nasally Once a day 1 spray in each nostril 24h Jan, 30 day(s) Active Trazodone HCl 150 MG Orally at hs 2 30 days Active Lisinopril 10 MG Orally Once a day 1 tablet 24h 90 days Active Zoloft 100 mg Orally Once a day 2 tablets 24h 90 days Active RESULTS Name Result Date Reference Range STREP A (IN HOUSE) 2018-03-16 STREP A Positive Control + Lot # [id number] Exp date 08/30/2018 PROCEDURES Procedure Date Ordered Result Body Site STREP A ASSAY W/OPTIC March 16, 2018 BICILLIN LA/PENICILLIN G BENZATHINE March 16, 2018 [facility] VISIT ESTABLISHED PATIENT March 16, 2018 THER/PROPH/DIAG INJ, SC/IM March 16, 2018 INSTRUCTIONS MEDICATIONS ADMINISTERED No Known Medications [...]
--- OUTSIDE RECORDS SUMMARY | 2018-07-30 07:51 | XMS REPORT ---
Author Author PERRYMAE Brewster Organization [facility] Address [address] [place] [address] Care Team Providers Care Business Administration Instructor Name Role Phone MAE PERRY Unavailable PROBLEMS Type Condition ICD9-CM Code SJE74-HY Code Onset Dates Condition Status SNOMED Code Problem Seasonal allergic rhinitis due to pollen J30.1 Active 53232073 Problem Autism F84.0 Active 575333996 Problem Recurrent major depressive disorder, in partial remission F33.41 Active 91543516 Problem Adenoma determined by biopsy of liver D13.4 Active 409931761 Problem Body mass index (BMI) of 50-59.9 in adult Z68.43 Active 952506744 Problem Morbid (severe) obesity due to excess calories E66.01 Active 735527987 Problem Hirsutism L68.0 Active 672772521 Problem Essential hypertension I10 Active 47113114 Problem Seizure disorder G40.909 Active 436762201 Problem Acanthosis nigricans L83 Active 634594983 Problem Acquired hypothyroidism E03.9 Active 459711158 ALLERGIES No Information ENCOUNTERS Encounter Location Date Diagnosis [facility] [address] [place] [id number] Aug, [facility] [id number] [place] [id number] May, [facility] [id number] [place] [address] 79534- 1246 May, Acute nasopharyngitis J00 and BMI 45.0-49.9, adult Z68.42 [facility] [id number] [place] [id number] May, Dental examination Z01.20 [facility] [address] [place] [address] 22825- 7372 25 May, 2018 Essential hypertension I10 ; Acquired hypothyroidism E03.9 ; Recurrent major depressive disorder, in partial remission F33.41 ; Seizure disorder G40.909 ; Autism F84.0 ; Morbid (severe) obesity due to excess calories E66.01 ; Seasonal allergic rhinitis due to pollen J30.1 ; Adenoma determined by biopsy of liver D13.4 and Contact dermatitis, unspecified contact dermatitis type, unspecified trigger L25.9 [place] [address] [address]- [address] March, [place] [address] 81813- 7569 March, Contact dermatitis, unspecified contact dermatitis type, unspecified trigger L25.9 and BMI 50.0-59.9, adult Z68.43 [place] [id number] [place] [address] 61365- 8946 March, [place] [address] 25267- 2613 Mar, [place] [address] 70067- 4598 Mar, Sore throat J02.9 ; Strep pharyngitis J02.0 and BMI 45.0- 49.9, adult Z68.42 [place] [id number] [place] [address] 06651- 0498 Jan, Seizure disorder G40.909 [place] [id number] [place] [address] 64475- 2273 Jan, [place] [address] 22194- 4512 Jan, Diarrhea, unspecified type R19.7 [place] [address] 72545- 1829 Jan, Diarrhea, unspecified type R19.7 and BMI 50.0-59.9, adult Z68.43 [facility] [address] [address] Jan, Drug side effects T88.7XXA ; Diarrhea, unspecified type R19.7 and BMI 50.0-59.9, adult Z68.43 [place] [id number] [place] [address] 06376- 4663 Jan, [place] [address] 27772- 3009 08 Jan, 2018 Dental examination Z01.20 [place] [address] 94140- 7611 06 Jan, 2018 Seasonal allergic rhinitis due to pollen J30.1 [place] [address] 66891- 2010 05 Jan, 2018 Acute non-recurrent maxillary sinusitis J01.00 and Acute suppurative otitis media of right ear without spontaneous rupture of tympanic membrane, recurrence not specified H66.001 [place] [id number] [place] [address] 94640- 6820 Jan, Seizure disorder G40.909 [place] [address] 91208- 1555 Jan, Essential hypertension I10 ; Seizure disorder G40.909 ; Acquired hypothyroidism E03.9 ; Morbid (severe) obesity due to excess calories E66.01 ; Screening for diabetes mellitus Z13.1 ; Hirsutism L68.0 and Acanthosis nigricans L83 [place] [id number] [place] [address] 62589- 7012 05 Jan, 2018 Essential hypertension I10 ; [...] ; Hirsutism L68.0 and Acanthosis nigricans L83 [facility] [address] [facility] [id number] [place] [address] Jan, IMMUNIZATIONS No Known Immunizations SOCIAL HISTORY Never Assessed REASON FOR VISIT Refill request PLAN OF CARE VITAL SIGNS MEDICATIONS Medication Instructions Dosage Frequency Start Date End Date Duration Status Valtrex 1 GM Orally as needed 1 tablet May, 30 days Active Trazodone HCl 150 MG Orally at hs 2 30 days Active Lamictal 200 mg Orally Twice a day 1 tablet 12h 90 days Active RESULTS No Results PROCEDURES No [...]
--- OUTSIDE RECORDS SUMMARY | 2018-07-30 07:51 | XMS REPORT ---
Author Author LENA TANNER [facility] Address [address] [place] [address] Care Team Providers Care Dynamometer Tuner Name Role Phone TANNER PAREDES Unavailable PROBLEMS Type Condition ICD9-CM Code LUL60-QL Code Onset Dates Condition Status SNOMED Code Problem Seasonal allergic rhinitis due to pollen J30.1 Active 42389193 Problem Autism F84.0 Active 306310920 Problem Recurrent major depressive disorder, in partial remission F33.41 Active 45828939 Problem Adenoma determined by biopsy of liver D13.4 Active 219562902 Problem Body mass index (BMI) of 50-59.9 in adult Z68.43 Active 971661095 Problem Morbid (severe) obesity due to excess calories E66.01 Active 697966692 Problem Hirsutism L68.0 Active 283440388 Problem Essential hypertension I10 Active 81258781 Problem Seizure disorder G40.909 Active 743194080 Problem Acanthosis nigricans L83 Active 202991109 Problem Acquired hypothyroidism E03.9 Active 031082784 ALLERGIES Substance Reaction Event Type Date Status Cefaclor rash Drug Allergy Jan, Active ENCOUNTERS Encounter Location Date Diagnosis [facility] [address] [id number] Aug, [facility] [id number] [place] [id number] May, [facility] [address] [place] [address] [phone]- 0673 06 May, 2018 Acute nasopharyngitis J00 and BMI 45.0-49.9, adult Z68.42 [facility] [address] [place] [address] [id number] May, Dental examination Z01.20 [facility] [id number] [place] [address] 12614- 3855 March, Essential hypertension I10 ; Acquired hypothyroidism E03.9 ; Recurrent major depressive disorder, in partial remission F33.41 ; Seizure disorder G40.909 ; Autism F84.0 ; Morbid (severe) obesity due to excess calories E66.01 ; Seasonal allergic rhinitis due to pollen J30.1 ; Adenoma determined by biopsy of liver D13.4 and Contact dermatitis, unspecified contact dermatitis type, unspecified trigger L25.9 [place] [id number] [place] [address] 70489- 4656 March, [place] [id number] [place] [address] 43469- 4730 March, Contact dermatitis, unspecified contact dermatitis type, unspecified trigger L25.9 and BMI 50.0-59.9, adult Z68.43 [place] [id number] [place] [address] 27052- 1605 March, [place] [id number] [place] [address] 92956- 5836 Mar, [place] [id number] [place] [address] 65212- 1376 Mar, Sore throat J02.9 ; Strep pharyngitis J02.0 and BMI 45.0- 49.9, adult Z68.42 [place] [id number] [place] [address] 21153- 1696 Jan, Seizure disorder G40.909 [place] [id number] [place] [address] 56760- 0815 Jan, [place] [id number] [place] [address] 37684- 1932 Jan, Diarrhea, unspecified type R19.7 [place] [id number] [place] [address] 41325- 0835 Jan, Diarrhea, unspecified type R19.7 and BMI 50.0-59.9, adult Z68.43 [facility] IN [place] [address] [place] [address] 42285 -7321 Jan, Drug side effects T88.7XXA ; Diarrhea, unspecified type R19.7 and BMI 50.0-59.9, adult Z68.43 [place] [id number] [place] [address] 40657- 3703 Jan, [place] [address] 30435- 0745 08 Jan, 2018 Dental examination Z01.20 [place] [address] 29475- 6246 06 Jan, 2018 Seasonal allergic rhinitis due to pollen J30.1 [place] [id number] [place] [address] 15797- 0107 05 Jan, 2018 Acute non-recurrent maxillary sinusitis J01.00 and Acute suppurative otitis media of right ear without spontaneous rupture of tympanic membrane, recurrence not specified H66.001 [place] [id number] [place] [address] 67388- 1044 Jan, Seizure disorder G40.909 [place] [address] 79349- 7833 Jan, Essential hypertension I10 ; Seizure disorder G40.909 ; Acquired hypothyroidism E03.9 ; Morbid (severe) obesity due to excess calories E66.01 ; Screening for diabetes mellitus Z13.1 ; Hirsutism L68.0 and Acanthosis nigricans L83 [place] [id number] [place] [address] 13149- 0523 05 Jan, 2018 Essential hypertension I10 ; [...] ; Hirsutism L68.0 and Acanthosis nigricans L83 [facility] [address] [facility] [id number] [place] [address] Jan, IMMUNIZATIONS No Known Immunizations SOCIAL HISTORY Never Assessed REASON FOR VISIT Diarrhea, Diarrhea since 02/02/18. Currently on abx for sinus infection. States she had the diarrhea prior to starting [id number] Reyez PLAN OF CARE Activity Details Follow Up prn after results Reason: VITAL SIGNS Height 65 in 2018-02-11 Weight 303.9 lbs 2018-02-11 Heart Rate 90 bpm 2018-02-11 Respiratory Rate 18 2018-02-11 BMI 50.57 kg/m2 2018-02-11 MEDICATIONS Medication Instructions Dosage Frequency Start Date End Date Duration Status Lamictal 200 MG Orally Twice a day 1 tablet 12h 90 days Active Melatonin 10 MG Orally at bedtime 1 tablet Active Lisinopril 10 MG Orally Once a day 1 tablet 24h 90 days Active Zoloft 100 mg Orally Once a day 2 tablets 24h 90 days Active Multi For Her Active Vitamin D 1000 UNIT Orally Once a day 1 tablet 24h Active Loratadine 10 mg Orally Once a day 1 tablet 24h Jan, 90 days Active Fluticasone Propionate 50 MCG/ACT Nasally Once a day 1 spray in each nostril 24h Jan, 30 day(s) Active Augmentin 875-125 MG Orally every 12 hrs 1 tablet 12h Jan,Jan 10 day(s) Active Trazodone HCl 150 MG Orally at hs 2 Active Levothyroxine Sodium 75 MCG Orally Once a day 1 tablet on an empty stomach in the morning 24h 90 days Active Valtrex 1 GM Orally as needed 1 tablet Active Ibuprofen 800 MG Orally Three times a day PRN 1 tablet with food or milk as needed Active RESULTS No Results PROCEDURES Procedure Date Ordered Result Body Site [facility] VISIT ESTABLISHED PATIENT February 11, 2018 INSTRUCTIONS MEDICATIONS ADMINISTERED No Known Medications [...] and adenoidectomy Surgical History dilatation and curettage 2014 Hospitalization History Surgery(s)
--- OUTSIDE RECORDS SUMMARY | 2018-07-30 07:51 | XMS REPORT ---
Author Author LENA TANNER [facility] Address [address] [place] [address] Care Team Providers Care Buyer Planner Name Role Phone LENATANNER SORIANO Unavailable PROBLEMS Type Condition ICD9-CM Code JEO09-CC Code Onset Dates Condition Status SNOMED Code Problem Seasonal allergic rhinitis due to pollen J30.1 Active 81927365 Problem Autism F84.0 Active 699028783 Problem Recurrent major depressive disorder, in partial remission F33.41 Active 08634946 Problem Adenoma determined by biopsy of liver D13.4 Active 097694338 Problem Body mass index (BMI) of 50-59.9 in adult Z68.43 Active 449303089 Problem Morbid (severe) obesity due to excess calories E66.01 Active 538514492 Problem Hirsutism L68.0 Active 957356517 Problem Essential hypertension I10 Active 79484128 Problem Seizure disorder G40.909 Active 358993049 Problem Acanthosis nigricans L83 Active 555615248 Problem Acquired hypothyroidism E03.9 Active 550615541 ALLERGIES No Information ENCOUNTERS Encounter Location Date Diagnosis [facility] [address] [place] [address] [id number] Aug, [facility] [id number] [place] [address] [id number] May, [facility] [id number] [place] [address] 85903- 6787 May, Acute nasopharyngitis J00 and BMI 45.0-49.9, adult Z68.42 [facility] [id number] [place] [address] [id number] May, Dental examination Z01.20 [facility] [id number] [place] [address] 12003- 0618 March, Essential hypertension I10 ; Acquired hypothyroidism E03.9 ; Recurrent major depressive disorder, in partial remission F33.41 ; Seizure disorder G40.909 ; Autism F84.0 ; Morbid (severe) obesity due to excess calories E66.01 ; Seasonal allergic rhinitis due to pollen J30.1 ; Adenoma determined by biopsy of liver D13.4 and Contact dermatitis, unspecified contact dermatitis type, unspecified trigger L25.9 [place] [id number] [place] [address] 26270- 9351 March, [place] [address] 32925- 5904 March, Contact dermatitis, unspecified contact dermatitis type, unspecified trigger L25.9 and BMI 50.0-59.9, adult Z68.43 [place] [id number] [place] [address] 49709- 8111 March, [place] [address] 05882- 0896 Mar, [place] [id number] [place] [address] 04637- 3427 Mar, Sore throat J02.9 ; Strep pharyngitis J02.0 and BMI 45.0- 49.9, adult Z68.42 [place] [id number] [place] [address] 57416- 4383 Jan, Seizure disorder G40.909 [place] [id number] [place] [address] 80365- 2739 Jan, [place] [id number] [place] [address] 57927- 9563 Jan, Diarrhea, unspecified type R19.7 [place] [address] 72165- 7840 Jan, Diarrhea, unspecified type R19.7 and BMI 50.0-59.9, adult Z68.43 [facility] [id number] [place] [address] 07619 -6982 Jan, Drug side effects T88.7XXA ; Diarrhea, unspecified type R19.7 and BMI 50.0-59.9, adult Z68.43 [place] [id number] [place] [address] 44476- 3455 Jan, [place] [address] [address]10- 4843 Jan, Dental examination Z01.20 [place] [address] 16072- 3735 06 Jan, 2018 Seasonal allergic rhinitis due to pollen J30.1 [place] [address] 33448- 4029 Jan, Acute non-recurrent maxillary sinusitis J01.00 and Acute suppurative otitis media of right ear without spontaneous rupture of tympanic membrane, recurrence not specified H66.001 [place] [address] 72816- 3391 Jan, Seizure disorder G40.909 [place] [address] 65312- 3032 Jan, Essential hypertension I10 ; Seizure disorder G40.909 ; Acquired hypothyroidism E03.9 ; Morbid (severe) obesity due to excess calories E66.01 ; Screening for diabetes mellitus Z13.1 ; Hirsutism L68.0 and Acanthosis nigricans L83 [place] [address] [place] [id number] [place] [address] 73323- 4723 05 Jan, 2018 Essential hypertension I10 ; [...] ; Hirsutism L68.0 and Acanthosis nigricans L83 [facility] [address] [facility] [id number] [place] [address]- 8476 Jan, IMMUNIZATIONS No Known Immunizations SOCIAL HISTORY Never Assessed REASON FOR VISIT PLAN OF CARE VITAL SIGNS MEDICATIONS Unknown Medications RESULTS No Results PROCEDURES Procedure Date Ordered Result Body Site TEST FOR BLOOD, FECES February 13, 2018 LAB NOT BILLED BY [facility] February 13, 2018 INSTRUCTIONS MEDICATIONS ADMINISTERED No Known [...]
--- OUTSIDE RECORDS SUMMARY | 2018-07-30 07:52 | XMS REPORT ---
Author Author PERRYMAE Brewster Organization [facility] Address [address] [place] [address] Care Team Providers Care Board Hammer Operator Name Role Phone MAE PERRY Unavailable PROBLEMS Type Condition ICD9-CM Code CLT09-HG Code Onset Dates Condition Status SNOMED Code Problem Seasonal allergic rhinitis due to pollen J30.1 Active 12034593 Problem Autism F84.0 Active 507544271 Problem Recurrent major depressive disorder, in partial remission F33.41 Active 63040084 Problem Adenoma determined by biopsy of liver D13.4 Active 573402636 Problem Body mass index (BMI) of 50-59.9 in adult Z68.43 Active 921888003 Problem Morbid (severe) obesity due to excess calories E66.01 Active 445825231 Problem Hirsutism L68.0 Active 190570272 Problem Essential hypertension I10 Active 59040368 Problem Seizure disorder G40.909 Active 302655179 Problem Acanthosis nigricans L83 Active 568588745 Problem Acquired hypothyroidism E03.9 Active 614654311 ALLERGIES Substance Reaction Event Type Date Status Cefaclor rash Drug Allergy Jan, Active ENCOUNTERS Encounter Location Date Diagnosis [facility] [address] [facility] [id number] [id number] Aug, [facility] [address] [place] [id number] May, [facility] [address] [place] [address] 83713- 1572 May, Acute nasopharyngitis J00 and BMI 45.0-49.9, adult Z68.42 [facility] [address] [place] [address] [id number] May, Dental examination Z01.20 [facility] [address] [place] [id number] [place] [address] 20187- 9560 March, Essential hypertension I10 ; Acquired hypothyroidism E03.9 ; Recurrent major depressive disorder, in partial remission F33.41 ; Seizure disorder G40.909 ; Autism F84.0 ; Morbid (severe) obesity due to excess calories E66.01 ; Seasonal allergic rhinitis due to pollen J30.1 ; Adenoma determined by biopsy of liver D13.4 and Contact dermatitis, unspecified contact dermatitis type, unspecified trigger L25.9 [place] [address] 0[address]90- 7898 March, [place] [address] 60818- 8931 March, Contact dermatitis, unspecified contact dermatitis type, unspecified trigger L25.9 and BMI 50.0-59.9, adult Z68.43 [place] [address] 13706- 2362 March, [place] [address] 09742- 5993 Mar, [place] [address] 73311- 1790 Mar, Sore throat J02.9 ; Strep pharyngitis J02.0 and BMI 45.0- 49.9, adult Z68.42 [place] [address] [place] [id number] [place] [address] 88418- 2357 Jan, Seizure disorder G40.909 [place] [address] 13789- 0027 Jan, [place] [address] 31496- 7477 Jan, Diarrhea, unspecified type R19.7 [place] [address] 15179- 1674 Jan, Diarrhea, unspecified type R19.7 and BMI 50.0-59.9, adult Z68.43 [facility] [address] [place] [address] 57885 -1457 Jan, Drug side effects T88.7XXA ; Diarrhea, unspecified type R19.7 and BMI 50.0-59.9, adult Z68.43 [place] [address] [place] [id number] [place] [address] 00954- 3446 Jan, [place] [address] 26765- 5973 08 Jan, 2018 Dental examination Z01.20 [place] [address] 27720- 0040 06 Jan, 2018 Seasonal allergic rhinitis due to pollen J30.1 [place] [address] 76707- 8739 05 Jan, 2018 Acute non-recurrent maxillary sinusitis J01.00 and Acute suppurative otitis media of right ear without spontaneous rupture of tympanic membrane, recurrence not specified H66.001 [place] [address] [place] [id number] [place] [address] 26413- 6701 Jan, Seizure disorder G40.909 [place] [address] 40866- 6769 Jan, Essential hypertension I10 ; Seizure disorder G40.909 ; Acquired hypothyroidism E03.9 ; Morbid (severe) obesity due to excess calories E66.01 ; Screening for diabetes mellitus Z13.1 ; Hirsutism L68.0 and Acanthosis nigricans L83 [place] [address] [place] [id number] [place] [address] 75040- 2577 05 Jan, 2018 Essential hypertension I10 ; [...] ; Hirsutism L68.0 and Acanthosis nigricans L83 [facility] [place] [address] [facility] [id number] [place] [address] Jan, IMMUNIZATIONS No Known Immunizations SOCIAL HISTORY Never Assessed REASON FOR VISIT Cold symptoms--tjanssenMA, --sneezing, congestion, head cold. , --cold symptoms started 01/28, --pt didnt start loratadine unaware it was sent to pharmacy. PLAN OF CARE Activity Details Follow Up 3 Months, prn Reason:CHM VITAL SIGNS Height 65 in 2018-02-02 Weight 305.6 lbs 2018-02-02 Temperature 98.8 degrees Fahrenheit 2018-02-02 Heart Rate 80 bpm 2018-02-02 Respiratory Rate 20 2018-02-02 BMI 50.85 kg/m2 2018-02-02 Blood pressure systolic 110 mmHg 2018-02-02 Blood pressure diastolic 74 mmHg 2018-02-02 MEDICATIONS Medication Instructions Dosage Frequency Start Date End Date Duration Status Vitamin D 1000 UNIT Orally Once a day 1 tablet 24h Active Fluticasone Propionate 50 MCG/ACT Nasally Once a day 1 spray in each nostril 24h Jan, 30 day(s) Active Trazodone HCl 150 MG Orally at hs 2 Active Melatonin 10 MG Orally at bedtime 1 tablet Active Lisinopril 10 MG Orally Once a day 1 tablet 24h 90 days Active Loratadine 10 mg Orally Once a day 1 tablet 24h Jan, March, 90 days Active Multi For Her Active Valtrex 1 GM Orally as needed 1 tablet Active Ibuprofen 800 MG Orally Three times a day PRN 1 tablet with food or milk as needed Active Lamictal 200 MG Orally Twice a day 1 tablet 12h 90 days Active Augmentin 875-125 MG Orally every 12 hrs 1 tablet 12h Jan,Jan 10 day(s) Active Levothyroxine Sodium 75 MCG Orally Once a day 1 tablet on an empty stomach in the morning 24h 90 days Active Zoloft 100 mg Orally Once a day 2 tablets 24h 90 days Active RESULTS No Results PROCEDURES Procedure Date Ordered Result Body Site [facility] VISIT ESTABLISHED PATIENT February 02, 2018 INSTRUCTIONS MEDICATIONS ADMINISTERED No Known Medications [...]
--- OUTSIDE RECORDS SUMMARY | 2018-07-30 07:52 | XMS REPORT ---
Author Author PERRYMAE Brewster Organization [facility] Address [address] [place] [address] Care Team Providers Care Consultative Sales Associate Name Role Phone MAE PERRY Unavailable PROBLEMS Type Condition ICD9-CM Code KCC86-DM Code Onset Dates Condition Status SNOMED Code Problem Seasonal allergic rhinitis due to pollen J30.1 Active 84855831 Problem Autism F84.0 Active 393730846 Problem Recurrent major depressive disorder, in partial remission F33.41 Active 36577133 Problem Adenoma determined by biopsy of liver D13.4 Active 995346709 Problem Body mass index (BMI) of 50-59.9 in adult Z68.43 Active 919775333 Problem Morbid (severe) obesity due to excess calories E66.01 Active 786053908 Problem Hirsutism L68.0 Active 670197066 Problem Essential hypertension I10 Active 40978097 Problem Seizure disorder G40.909 Active 076467297 Problem Acanthosis nigricans L83 Active 812380829 Problem Acquired hypothyroidism E03.9 Active 631333249 ALLERGIES No Information ENCOUNTERS Encounter Location Date Diagnosis [facility] [address] [place] [address] [id number] Aug, [facility] [address] [place] [id number] [place] [id number] May, [facility] [address] [place] [address] [id number] [place] [address] 78624- 4076 May, Acute nasopharyngitis J00 and BMI 45.0-49.9, adult Z68.42 [facility] [address] [place] [id number] [place] [id number] May, Dental examination Z01.20 [facility] [address] [place] [address] 62598- 9641 25 May, 2018 Essential hypertension I10 ; Acquired hypothyroidism E03.9 ; Recurrent major depressive disorder, in partial remission F33.41 ; Seizure disorder G40.909 ; Autism F84.0 ; Morbid (severe) obesity due to excess calories E66.01 ; Seasonal allergic rhinitis due to pollen J30.1 ; Adenoma determined by biopsy of liver D13.4 and Contact dermatitis, unspecified contact dermatitis type, unspecified trigger L25.9 [place] [address] 31075- 0465 March, [place] [address] 40519- 9634 March, Contact dermatitis, unspecified contact dermatitis type, unspecified trigger L25.9 and BMI 50.0-59.9, adult Z68.43 [place] [address] [place] [id number] [place] [address] 34026- 7147 March, [place] [address] 76510- 0710 Mar, [place] [address] 57670- 2929 Mar, Sore throat J02.9 ; Strep pharyngitis J02.0 and BMI 45.0- 49.9, adult Z68.42 [place] [address] [place] [id number] [place] [address] 41369- 8856 Jan, Seizure disorder G40.909 [place] [address] [place] [id number] [place] [address] 75762- 4267 Jan, [place] [address] 41937- 3225 Jan, Diarrhea, unspecified type R19.7 [place] [address] 79617- 7682 Jan, Diarrhea, unspecified type R19.7 and BMI 50.0-59.9, adult Z68.43 [facility] [address] 37[address] -9280 Jan, Drug side effects T88.7XXA ; Diarrhea, unspecified type R19.7 and BMI 50.0-59.9, adult Z68.43 [place] [address] [place] [id number] [place] [address] 80638- 6246 Jan, [place] [address] 15686- 5819 08 Jan, 2018 Dental examination Z01.20 [place] [address] 71515- 0188 06 Jan, 2018 Seasonal allergic rhinitis due to pollen J30.1 [place] [address] 42832- 1830 05 Jan, 2018 Acute non-recurrent maxillary sinusitis J01.00 and Acute suppurative otitis media of right ear without spontaneous rupture of tympanic membrane, recurrence not specified H66.001 [place] [address] [place] [id number] [place] [address] 84659- 2912 Jan, Seizure disorder G40.909 [place] [address] 50256- 1777 Jan, Essential hypertension I10 ; Seizure disorder G40.909 ; Acquired hypothyroidism E03.9 ; Morbid (severe) obesity due to excess calories E66.01 ; Screening for diabetes mellitus Z13.1 ; Hirsutism L68.0 and Acanthosis nigricans L83 [place] [address] [place] [id number] [place] [address] 97123- 9253 05 Jan, 2018 Essential hypertension I10 ; [...] ; Hirsutism L68.[address] [facility] [address] [facility] [id number] [place] [address] Jan, IMMUNIZATIONS No Known Immunizations SOCIAL HISTORY Never Assessed REASON FOR VISIT Refill request PLAN OF CARE VITAL SIGNS MEDICATIONS Medication Instructions Dosage Frequency Start Date End Date Duration Status Loratadine 10 mg Orally Once a day 1 tablet 24h Jan, 90 days Active RESULTS No Results PROCEDURES [...]
--- OUTSIDE RECORDS SUMMARY | 2018-07-30 07:52 | XMS REPORT ---
Author Author PERRYMAE Brewster Organization [facility] Address [address] [place] [address] Care Team Providers Care Slot Floor Attendant Name Role Phone MAE PERRY Unavailable PROBLEMS Type Condition ICD9-CM Code XRY28-LN Code Onset Dates Condition Status SNOMED Code Problem Seasonal allergic rhinitis due to pollen J30.1 Active 65339007 Problem Autism F84.0 Active 698550832 Problem Recurrent major depressive disorder, in partial remission F33.41 Active 57190794 Problem Adenoma determined by biopsy of liver D13.4 Active 254384236 Problem Body mass index (BMI) of 50-59.9 in adult Z68.43 Active 811604317 Problem Morbid (severe) obesity due to excess calories E66.01 Active 497195748 Problem Hirsutism L68.0 Active 468225663 Problem Essential hypertension I10 Active 56519694 Problem Seizure disorder G40.909 Active 744297653 Problem Acanthosis nigricans L83 Active 063793021 Problem Acquired hypothyroidism E03.9 Active 512266865 ALLERGIES No Information ENCOUNTERS Encounter Location Date Diagnosis [facility] [address] [place] [id number] [place] [address] [id number] Aug, [facility] [address] [place] [id number] [place] [address] [id number] May, [facility] [address] [id number] [phone] May, Dental examination Z01.20 [facility] [address] [place] [id number] [place] [address] [phone] March, Essential hypertension I10 ; Acquired hypothyroidism E03.9 ; Recurrent major depressive disorder, in partial remission F33.41 ; Seizure disorder G40.909 ; Autism F84.0 ; Morbid (severe) obesity due to excess calories E66.01 ; Seasonal allergic rhinitis due to pollen J30.1 ; Adenoma determined by biopsy of liver D13.4 and Contact dermatitis, unspecified contact dermatitis type, unspecified trigger L25.9 [place] [address] [place] [id number] [place] [address] 27963- 0469 March, [place] [address] [place] [id number] [place] [address] 11130- 7012 March, Contact dermatitis, unspecified contact dermatitis type, unspecified trigger L25.9 and BMI 50.0-59.9, adult Z68.43 [place] [address] [place] [id number] [place] [address] 75664- 3524 March, [place] [address] [place] [id number] [place] [address] 30478- 5495 Mar, [place] [address] [place] [id number] [place] [address] 91893- 2819 Mar, Sore throat J02.9 ; Strep pharyngitis J02.0 and BMI 45.0- 49.9, adult Z68.42 [place] [address] [place] [id number] [place] [address] 15311- 5854 Jan, Seizure disorder G40.909 [place] [address] [place] [id number] [place] [address] 58237- 5401 Jan, [place] [address] [place] [id number] [place] [address] 41941- 5529 Jan, Diarrhea, unspecified type R19.7 [place] [address] [place] [id number] [place] [address] 31841- 9824 Jan, Diarrhea, unspecified type R19.7 and BMI 50.0-59.9, adult Z68.43 [facility] [address] [place] [address] 38091 -8070 12 Jan, 2018 Drug side effects T88.7XXA ; Diarrhea, unspecified type R19.7 and BMI 50.0-59.9, adult Z68.43 [place] [address] [place] [address] 09646- 5417 Jan, [place] [address] [place] [id number] [place] [address] 35678- 4672 Jan, Dental examination Z01.20 [place] [address] [place] [id number] [place] [address] 08013- 5952 Jan, Seasonal allergic rhinitis due to pollen J30.1 [place] [address] 67251- 7831 Jan, Acute non-recurrent maxillary sinusitis J01.00 and Acute suppurative otitis media of right ear without spontaneous rupture of tympanic membrane, recurrence not specified H66.001 [place] [address] [place] [id number] [place] [address] 07052- 3966 Jan, Seizure disorder G40.909 [place] [address] 58039- 1631 Jan, Essential hypertension I10 ; Seizure disorder G40.909 ; Acquired hypothyroidism E03.9 ; Morbid (severe) obesity due to excess calories E66.01 ; Screening for diabetes mellitus Z13.1 ; Hirsutism L68.0 and Acanthosis nigricans L83 [address] [place] [address] 22398- 0074 Jan, Essential hypertension I10 ; Seizure disorder [...] ; Hirsutism L68.0 and Acanthosis nigricans L83 [place] [address] [place] [address] 07994- 0436 Jan, IMMUNIZATIONS No Known Immunizations SOCIAL HISTORY Never Assessed REASON FOR VISIT PA Needed PLAN OF CARE VITAL SIGNS MEDICATIONS Medication [...]
--- OUTSIDE RECORDS SUMMARY | 2018-07-30 07:52 | XMS REPORT ---
Author Author PERRYMAE Brewster Organization [facility] Address [address] [place] [address] Care Team Providers Care Umbrella Repairer Name Role Phone MAE PERRY Unavailable PROBLEMS Type Condition ICD9-CM Code XCK77-DF Code Onset Dates Condition Status SNOMED Code Problem Seasonal allergic rhinitis due to pollen J30.1 Active 69603052 Problem Autism F84.0 Active 173815128 Problem Recurrent major depressive disorder, in partial remission F33.41 Active 37243381 Problem Adenoma determined by biopsy of liver D13.4 Active 773781660 Problem Body mass index (BMI) of 50-59.9 in adult Z68.43 Active 865946307 Problem Morbid (severe) obesity due to excess calories E66.01 Active 822729130 Problem Hirsutism L68.0 Active 476509143 Problem Essential hypertension I10 Active 96398632 Problem Seizure disorder G40.909 Active 379842242 Problem Acanthosis nigricans L83 Active 487951938 Problem Acquired hypothyroidism E03.9 Active 378138831 ALLERGIES No Information ENCOUNTERS Encounter Location Date Diagnosis [facility] [address] [place] [id number] [place] [address] [id number] Aug, [facility] [address] [place] [id number] [place] [address] [id number] May, [facility] [address] [place] [id number] [id number] May, Dental examination Z01.20 [facility] [address] [place] [id number] [place] [address] [phone] 5992 March, Essential hypertension I10 ; Acquired hypothyroidism E03.9 ; Recurrent major depressive disorder, in partial remission F33.41 ; Seizure disorder G40.909 ; Autism F84.0 ; Morbid (severe) obesity due to excess calories E66.01 ; Seasonal allergic rhinitis due to pollen J30.1 ; Adenoma determined by biopsy of liver D13.4 and Contact dermatitis, unspecified contact dermatitis type, unspecified trigger L25.9 [place] [address] [place] [id number] [place] [address] 99134- 1086 March, [place] [address] [place] [id number] [place] [address] 19389- 6199 March, Contact dermatitis, unspecified contact dermatitis type, unspecified trigger L25.9 and BMI 50.0-59.9, adult Z68.43 [place] [address] [place] [id number] [place] [address] 89188- 3262 March, [place] [address] [place] [id number] [place] [address] 26737- 2449 Mar, [place] [address] [place] [id number] [place] [address] 23903- 6833 Mar, Sore throat J02.9 ; Strep pharyngitis J02.0 and BMI 45.0- 49.9, adult Z68.42 [place] [address] [place] [id number] [place] [address] 19823- 6345 Jan, Seizure disorder G40.909 [place] [address] [place] [id number] [place] [address] 56008- 7666 Jan, [place] [address] [place] [id number] [place] [address] 50204- 9652 Jan, Diarrhea, unspecified type R19.7 [place] [address] [place] [id number] [place] [address] 98714- 7714 Jan, Diarrhea, unspecified type R19.7 and BMI 50.0-59.9, adult Z68.43 [facility] [address] [place] [address] 21298 -1028 12 Jan, 2018 Drug side effects T88.7XXA ; Diarrhea, unspecified type R19.7 and BMI 50.0-59.9, adult Z68.43 [place] [address] [place] [address] 94526- 0733 Jan, [place] [address] [place] [id number] [place] [address] 25228- 5271 Jan, Dental examination Z01.20 [place] [address] [place] [id number] [place] [address] 45159- 5166 Jan, Seasonal allergic rhinitis due to pollen J30.1 [place] [address] 87182- 8570 Jan, Acute non-recurrent maxillary sinusitis J01.00 and Acute suppurative otitis media of right ear without spontaneous rupture of tympanic membrane, recurrence not specified H66.001 [place] [address] [place] [id number] [place] [address] 07705- 4372 Jan, Seizure disorder G40.909 [place] [address] 07590- 0124 Jan, Essential hypertension I10 ; Seizure disorder G40.909 ; Acquired hypothyroidism E03.9 ; Morbid (severe) obesity due to excess calories E66.01 ; Screening for diabetes mellitus Z13.1 ; Hirsutism L68.0 and Acanthosis nigricans L83 [address] [place] [address] 66307- 9945 Jan, Essential hypertension I10 ; Seizure disorder [...] ; Hirsutism L68.0 and Acanthosis nigricans L83 [place] [address] [place] [address] 12002- 7967 Jan, IMMUNIZATIONS No Known Immunizations SOCIAL HISTORY Never Assessed REASON FOR VISIT Lab (walk-in) PLAN OF CARE VITAL SIGNS MEDICATIONS Unknown Medications RESULTS No Results PROCEDURES Procedure Date Ordered Result Body Site [facility] Jan 12, 2018 Hemoglobin Test Send Out 0 dollar Jan 12, 2018 VENIPUNCT, ROUTINE* Jan 12, 2018 INSTRUCTIONS MEDICATIONS ADMINISTERED No Known Medications [...]
--- OUTSIDE RECORDS SUMMARY | 2018-07-30 07:52 | XMS REPORT ---
Author Author KALINA CAI [facility] Address [address] [place] [address] Care Team Providers Care Dispatcher Radioactive Waste Disposal Name Role Phone KALINA CAI Unavailable PROBLEMS Type Condition ICD9-CM Code [id number] Code Onset Dates Condition Status SNOMED Code Problem Seasonal allergic rhinitis due to pollen J30.1 Active 64457278 Problem Autism F84.0 Active 709804168 Problem Recurrent major depressive disorder, in partial remission F33.41 Active 53962135 Problem Adenoma determined by biopsy of liver D13.4 Active 323024877 Problem Body mass index (BMI) of 50-59.9 in adult Z68.43 Active 214791791 Problem Morbid (severe) obesity due to excess calories E66.01 Active 838277269 Problem Hirsutism L68.0 Active 194772068 Problem Essential hypertension I10 Active 44164707 Problem Seizure disorder G40.909 Active 964794560 Problem Acanthosis nigricans L83 Active 988734387 Problem Acquired hypothyroidism E03.9 Active 827929051 ALLERGIES Substance Reaction Event Type Date Status Cefaclor rash Drug Allergy Jan, Active ENCOUNTERS Encounter Location Date Diagnosis [facility] [id number] [id number] Aug, [facility] [id number] [id number] May, [facility] [id number] [place] [address] 767475- [address] May, Acute nasopharyngitis J00 and BMI 45.0-49.9, adult Z68.42 [facility] [address] [id number] May, Dental examination Z01.20 [facility] [address] [address] March, Essential hypertension I10 ; Acquired hypothyroidism E03.9 ; Recurrent major depressive disorder, in partial remission F33.41 ; Seizure disorder G40.909 ; Autism F84.0 ; Morbid (severe) obesity due to excess calories E66.01 ; Seasonal allergic rhinitis due to pollen J30.1 ; Adenoma determined by biopsy of liver D13.4 and Contact dermatitis, unspecified contact dermatitis type, unspecified trigger L25.9 [place] [address] [address] March, [place] [address] [address] March, Contact dermatitis, unspecified contact dermatitis type, unspecified trigger L25.9 and BMI 50.0-59.9, adult Z68.[address] [address] March, [place] [address] [address]- [address] Mar, [place] [address] 16[address]- [address]26 Mar, Sore throat J02.9 ; Strep pharyngitis J02.0 and BMI 45.0- 49.9, adult Z68.42 [place] [address] [address]- [address] Jan, Seizure disorder G40.909 [place] [address] [address]- 9549 Jan, [place] [address] [address]- [address] Jan, Diarrhea, unspecified type R19.7 [place] [address] [address]- [address] Jan, Diarrhea, unspecified type R19.7 and BMI 50.0-59.9, adult Z68.43 [facility] [address] [place] [address] -[address] 12 Jan, 2018 Drug side effects T88.7XXA ; Diarrhea, unspecified type R19.7 and BMI 50.0-59.9, adult Z68.43 [facility] [id number] [place] [address] 37937- 5414 12 Jan, 2018 [place] [address] 6[address]- [address] 08 Jan, 2018 Dental examination Z01.20 [place] [address] 45474- 4290 06 Jan, 2018 Seasonal allergic rhinitis due to pollen J30.1 [place] [id number] [place] [address] 97690- 2279 05 Jan, 2018 Acute non-recurrent maxillary sinusitis J01.00 and Acute suppurative otitis media of right ear without spontaneous rupture of tympanic membrane, recurrence not specified H66.001 [place] [id number] [place] [address] 13043- 4230 12 Jan, 2018 Seizure disorder G40.909 [place] [id number] [place] [address] 41518- 9065 12 Jan, 2018 Essential hypertension I10 ; Seizure disorder G40.909 ; Acquired hypothyroidism E03.9 ; Morbid (severe) obesity due to excess calories E66.01 ; Screening for diabetes mellitus Z13.1 ; Hirsutism L68.0 and Acanthosis nigricans L83 [place] [address] [place] [address] 31316- 3066 05 Jan, 2018 Essential hypertension I10 ; [...] ; Hirsutism L68.0 and Acanthosis nigricans L83 [facility] [address] [facility] [id number] [address] Jan, IMMUNIZATIONS No Known Immunizations SOCIAL HISTORY Never Assessed REASON FOR VISIT dental est. care. PLAN OF CARE Activity Details Follow Up prn Reason: VITAL SIGNS Blood pressure systolic 121 mmHg 2018-02-05 Blood pressure diastolic 78 mmHg 2018-02-05 MEDICATIONS Medication Instructions Dosage Frequency Start Date End Date Duration Status Ibuprofen 800 MG Orally Three times a day PRN 1 tablet with food or milk as needed Active Fluticasone Propionate 50 MCG/ACT Nasally Once a day 1 spray in each nostril 24h Jan, 30 day(s) Active Loratadine 10 mg Orally Once a day 1 tablet 24h Jan, 90 days Active Valtrex 1 GM Orally as needed 1 tablet Active Levothyroxine Sodium 75 MCG Orally Once a day 1 tablet on an empty stomach in the morning 24h 90 days Active Lisinopril 10 MG Orally Once a day 1 tablet 24h 90 days Active Vitamin D 1000 UNIT Orally Once a day 1 tablet 24h Active Multi For Her Active Melatonin 10 MG Orally at bedtime 1 tablet Active Zoloft 100 mg Orally Once a day 2 tablets 24h 90 days Active Trazodone HCl 150 MG Orally at hs 2 Active Augmentin 875-125 MG Orally every 12 hrs 1 tablet 12h Jan,Jan 10 day(s) Active Lamictal 200 MG Orally Twice a day 1 tablet 12h 90 days Active RESULTS No Results PROCEDURES Procedure Date Ordered Result Body Site INTRAORL - CMPL SERIES CODE 09163 February 05, 2018 PANORAMIC FILM SEE ALSO CODE 72246 February 05, 2018 TOPICAL FLUORIDE VARNISH February 05, 2018 PROPHYLAXIS - ADULT February 05, 2018 INSTRUCTIONS MEDICATIONS ADMINISTERED No Known Medications [...]
--- OUTSIDE RECORDS SUMMARY | 2018-07-30 07:52 | XMS REPORT ---
Author Author PERRYMAE Brewster Organization [facility] Address [address] [place] [address] Care Team Providers Care Case Filler Name Role Phone MAE PERRY Unavailable PROBLEMS Type Condition ICD9-CM Code [id number] Code Onset Dates Condition Status SNOMED Code Problem Seasonal allergic rhinitis due to pollen J30.1 Active 16212644 Problem Autism F84.0 Active 780828861 Problem Recurrent major depressive disorder, in partial remission F33.41 Active 60701204 Problem Adenoma determined by biopsy of liver D13.4 Active 287533393 Problem Body mass index (BMI) of 50-59.9 in adult Z68.43 Active 685542196 Problem Morbid (severe) obesity due to excess calories E66.01 Active 342070271 Problem Hirsutism L68.0 Active 521433710 Problem Essential hypertension I10 Active 10967329 Problem Seizure disorder G40.909 Active 797670521 Problem Acanthosis nigricans L83 Active 109428204 Problem Acquired hypothyroidism E03.9 Active 303075282 ALLERGIES No Information ENCOUNTERS Encounter Location Date Diagnosis [facility] [address] [place] [id number] Aug, [facility] [id number] [place] [id number] May, [facility] [id number] [place] [address] 45467- 2181 May, Acute nasopharyngitis J00 and BMI 45.0-49.9, adult Z68.42 [facility] [id number] [place] [id number] May, Dental examination Z01.20 [facility] [address] [place] [address] 31283- 2932 25 May, 2018 Essential hypertension I10 ; Acquired hypothyroidism E03.9 ; Recurrent major depressive disorder, in partial remission F33.41 ; Seizure disorder G40.909 ; Autism F84.0 ; Morbid (severe) obesity due to excess calories E66.01 ; Seasonal allergic rhinitis due to pollen J30.1 ; Adenoma determined by biopsy of liver D13.4 and Contact dermatitis, unspecified contact dermatitis type, unspecified trigger L25.9 [place] [address] [address] March, [place] [address] [address] March, Contact dermatitis, unspecified contact dermatitis type, unspecified trigger L25.9 and BMI 50.0-59.9, adult Z68.43 [place] [id number] [place] [address] 65650- 2782 March, [place] [address] [address]- [address] Mar, [place] [address] 432[address]- 9092 Mar, Sore throat J02.9 ; Strep pharyngitis J02.0 and BMI 45.0- 49.9, adult Z68.42 [place] [id number] [place] [address] 89236- 7430 Jan, Seizure disorder G40.909 [place] [id number] [place] [address] 52141- [address]112 Jan, [place] [address] 83258- [address]60 Jan, Diarrhea, unspecified type R19.7 [place] [address] [address]- [address] Jan, Diarrhea, unspecified type R19.7 and BMI 50.0-59.9, adult Z68.43 [facility] [address] [address] Jan, Drug side effects T88.7XXA ; Diarrhea, unspecified type R19.7 and BMI 50.0-59.9, adult Z68.43 [place] [id number] [place] [address] 43576- 0516 Jan, [place] [address] 08392- [address]23 08 Jan, 2018 Dental examination Z01.20 [place] [address] [address]75- 5483 06 Jan, 2018 Seasonal allergic rhinitis due to pollen J30.1 [place] [address] 78140- 7928 05 Jan, 2018 Acute non-recurrent maxillary sinusitis J01.00 and Acute suppurative otitis media of right ear without spontaneous rupture of tympanic membrane, recurrence not specified H66.001 [place] [id number] [place] [address] 81039- 0697 Jan, Seizure disorder G40.909 [place] [address] [address]- [address] Jan, Essential hypertension I10 ; Seizure disorder G40.909 ; Acquired hypothyroidism E03.9 ; Morbid (severe) obesity due to excess calories E66.01 ; Screening for diabetes mellitus Z13.1 ; Hirsutism L68.0 and Acanthosis nigricans L83 [place] [id number] [place] [address] 22917- 7769 05 Jan, 2018 Essential hypertension I10 ; [...] ; Hirsutism L68.0 and Acanthosis nigricans L83 [facility] [address] [facility] [id number] [address] Jan, IMMUNIZATIONS No Known Immunizations SOCIAL HISTORY Never Assessed REASON FOR VISIT Requests return call PLAN OF CARE VITAL SIGNS MEDICATIONS Unknown [...]
--- OUTSIDE RECORDS SUMMARY | 2018-07-30 07:52 | XMS REPORT ---
Author Author SITA VALDIVIA [facility] Address [address] [place] [address] Care Team Providers Care Film Cutter Name Role Phone SITA VALDIVIA Unavailable PROBLEMS Type Condition ICD9-CM Code [id number] Code Onset Dates Condition Status SNOMED Code Problem Seasonal allergic rhinitis due to pollen J30.1 Active 17061860 Problem Autism F84.0 Active 762383038 Problem Recurrent major depressive disorder, in partial remission F33.41 Active 97069900 Problem Adenoma determined by biopsy of liver D13.4 Active 801775866 Problem Body mass index (BMI) of 50-59.9 in adult Z68.43 Active 145065198 Problem Morbid (severe) obesity due to excess calories E66.01 Active 515062652 Problem Hirsutism L68.0 Active 240134544 Problem Essential hypertension I10 Active 93518643 Problem Seizure disorder G40.909 Active 222229909 Problem Acanthosis nigricans L83 Active 325853960 Problem Acquired hypothyroidism E03.9 Active 520770248 ALLERGIES Substance Reaction Event Type Date Status Cefaclor rash Drug Allergy Jan, Active ENCOUNTERS Encounter Location Date Diagnosis [facility] [address] [id number] Aug, [facility] [id number] [place] [id number] May, [facility] [address] [place] [address] 21200- 7094 May, Acute nasopharyngitis J00 and BMI 45.0-49.9, adult Z68.42 [facility] [address] [place] [id number] May, Dental examination Z01.20 [facility] [id number] [place] [address] 60594- 8121 March, Essential hypertension I10 ; Acquired hypothyroidism E03.9 ; Recurrent major depressive disorder, in partial remission F33.41 ; Seizure disorder G40.909 ; Autism F84.0 ; Morbid (severe) obesity due to excess calories E66.01 ; Seasonal allergic rhinitis due to pollen J30.1 ; Adenoma determined by biopsy of liver D13.4 and Contact dermatitis, unspecified contact dermatitis type, unspecified trigger L25.9 [place] [id number] [place] [address] 30778- 9955 March, [place] [id number] [place] [address] 77579- 6666 March, Contact dermatitis, unspecified contact dermatitis type, unspecified trigger L25.9 and BMI 50.0-59.9, adult Z68.43 [place] [id number] [place] [address] 23081- 3205 March, [place] [id number] [place] [address] 23044- 9136 Mar, [place] [id number] [place] [address] 69374- 7554 Mar, Sore throat J02.9 ; Strep pharyngitis J02.0 and BMI 45.0- 49.9, adult Z68.42 [place] [id number] [place] [address] 53584- 1606 Jan, Seizure disorder G40.909 [place] [id number] [place] [address] 15249- 5511 Jan, [place] [id number] [place] [address] 18473- 0487 Jan, Diarrhea, unspecified type R19.7 [place] [id number] [place] [address] 27248- 2318 Jan, Diarrhea, unspecified type R19.7 and BMI 50.0-59.9, adult Z68.43 [facility] [place] [address] [place] [address] 12313 -2394 Jan, Drug side effects T88.7XXA ; Diarrhea, unspecified type R19.7 and BMI 50.0-59.9, adult Z68.43 [place] [id number] [place] [address] 20077- 1113 Jan, [place] [address] [address]- [address] 08 Jan, 2018 Dental examination Z01.20 [place] [address] 20450- 1370 06 Jan, 2018 Seasonal allergic rhinitis due to pollen J30.1 [place] [id number] [place] [address] 89999- 3719 05 Jan, 2018 Acute non-recurrent maxillary sinusitis J01.00 and Acute suppurative otitis media of right ear without spontaneous rupture of tympanic membrane, recurrence not specified H66.001 [place] [id number] [place] [address] 08162- 2110 Jan, Seizure disorder G40.909 [place] [address] 16566- 5054 Jan, Essential hypertension I10 ; Seizure disorder G40.909 ; Acquired hypothyroidism E03.9 ; Morbid (severe) obesity due to excess calories E66.01 ; Screening for diabetes mellitus Z13.1 ; Hirsutism L68.0 and Acanthosis nigricans L83 [place] [id number] [place] [address] 48054- 1612 05 Jan, 2018 Essential hypertension I10 ; [...] ; Hirsutism L68.0 and Acanthosis nigricans L83 [facility] [address] [facility] [place] [id number] [place] [address] Jan, IMMUNIZATIONS No Known Immunizations SOCIAL HISTORY Never Assessed REASON FOR VISIT Diarrhea since starting abx- 6 episodes today JStrasserRN PLAN OF CARE Activity Details Follow Up prn Reason: VITAL SIGNS Height 65 in 2018-02-09 Weight 304.4 lbs 2018-02-09 Temperature 98.2 degrees Fahrenheit 2018-02-09 Heart Rate 104 bpm 2018-02-09 Respiratory Rate 18 2018-02-09 BMI 50.65 kg/m2 2018-02-09 Blood pressure systolic 106 mmHg 2018-02-09 Blood pressure diastolic 70 mmHg 2018-02-09 MEDICATIONS Medication Instructions Dosage Frequency Start Date End Date Duration Status Levothyroxine Sodium 75 MCG Orally Once a day 1 tablet on an empty stomach in the morning 24h 90 days Active Vitamin D 1000 UNIT Orally Once a day 1 tablet 24h Active Ibuprofen 800 MG Orally Three times a day PRN 1 tablet with food or milk as needed Active Lisinopril 10 MG Orally Once a day 1 tablet 24h 90 days Active Augmentin 875-125 MG Orally every 12 hrs 1 tablet 12h Jan,Jan 10 day(s) Active Fluticasone Propionate 50 MCG/ACT Nasally Once a day 1 spray in each nostril 24h Jan, 30 day(s) Active Valtrex 1 GM Orally as needed 1 tablet Active Melatonin 10 MG Orally at bedtime 1 tablet Active Multi For Her Active Lamictal 200 MG Orally Twice a day 1 tablet 12h 90 days Active Trazodone HCl 150 MG Orally at hs 2 Active Loratadine 10 mg Orally Once a day 1 tablet 24h Jan, 90 days Active Zoloft 100 mg Orally Once a day 2 tablets 24h 90 days Active RESULTS No Results PROCEDURES Procedure Date Ordered Result Body Site [facility] VISIT ESTABLISHED PATIENT February 09, 2018 INSTRUCTIONS MEDICATIONS ADMINISTERED No Known Medications [...]
--- OUTSIDE RECORDS SUMMARY | 2018-07-30 07:53 | XMS REPORT ---
Author Author PERRYMAE Brewster Organization [facility] Address [address] [place] [address] Care Team Providers Care Health Promotion Educator Name Role Phone MAE PERRY Unavailable PROBLEMS Type Condition ICD9-CM Code EMU14-DW Code Onset Dates Condition Status SNOMED Code Problem Seasonal allergic rhinitis due to pollen J30.1 Active 73925961 Problem Autism F84.0 Active 196957991 Problem Recurrent major depressive disorder, in partial remission F33.41 Active 06624028 Problem Adenoma determined by biopsy of liver D13.4 Active 255069151 Problem Body mass index (BMI) of 50-59.9 in adult Z68.43 Active 760695762 Problem Morbid (severe) obesity due to excess calories E66.01 Active 194905852 Problem Hirsutism L68.0 Active 364196307 Problem Essential hypertension I10 Active 23157439 Problem Seizure disorder G40.909 Active 741065962 Problem Acanthosis nigricans L83 Active 385357141 Problem Acquired hypothyroidism E03.9 Active 322830042 ALLERGIES Substance Reaction Event Type Date Status Cefaclor rash Drug Allergy Jan, Active ENCOUNTERS Encounter Location Date Diagnosis [facility] [address] [facility] [id number] [id number] Aug, [facility] [id number] [place] [address] [id number] May, [facility] [address] [facility] [id number] [place] [address] [id number] May, Dental examination Z01.20 [facility] [address] [place] [id number] [place] [address] 647276- 3306 March, Essential hypertension I10 ; Acquired hypothyroidism E03.9 ; Recurrent major depressive disorder, in partial remission F33.41 ; Seizure disorder G40.909 ; Autism F84.0 ; Morbid (severe) obesity due to excess calories E66.01 ; Seasonal allergic rhinitis due to pollen J30.1 ; Adenoma determined by biopsy of liver D13.4 and Contact dermatitis, unspecified contact dermatitis type, unspecified trigger L25.9 [facility] [address] [place] [address] 71913- 6920 March, [facility] [address] [id number] [place] [address] 26786- 4691 March, Contact dermatitis, unspecified contact dermatitis type, unspecified trigger L25.9 and BMI 50.0-59.9, adult Z68.43 [place] [id number] [place] [address] 06864- 4783 March, [place] [id number] [place] [address] 82091- 0927 Mar, [facility] [id number] [place] [address] 60262- 3914 Mar, Sore throat J02.9 ; Strep pharyngitis J02.0 and BMI 45.0- 49.9, adult Z68.42 [facility] [id number] [place] [address] 78832- 7063 Jan, Seizure disorder G40.909 [place] [address] [place] [id number] [place] [address] 03882- 9444 Jan, [facility] [id number] [place] [address] 69414- 4025 Jan, Diarrhea, unspecified type R19.7 [facility] [address] [id number] [place] [address] 66262- 7855 Jan, Diarrhea, unspecified type R19.7 and BMI 50.0-59.9, adult Z68.43 [facility] [address] [place] [address] 70638 -4429 Jan, Drug side effects T88.7XXA ; Diarrhea, unspecified type R19.7 and BMI 50.0-59.9, adult Z68.43 [place] [address] [place] [id number] [place] [address] 85545- 9660 Jan, [place] [address] 94993- 8994 Jan, Dental examination Z01.20 [place] [address] 35100- 3584 Jan, Seasonal allergic rhinitis due to pollen J30.1 [place] [address] 17444- 5593 Jan, Acute non-recurrent maxillary sinusitis J01.00 and Acute suppurative otitis media of right ear without spontaneous rupture of tympanic membrane, recurrence not specified H66.001 [place] [address] 49177- 5778 Jan, Seizure disorder G40.909 [place] [address] 47812- 1488 Jan, Essential hypertension I10 ; Seizure disorder G40.909 ; Acquired hypothyroidism E03.9 ; Morbid (severe) obesity due to excess calories E66.01 ; Screening for diabetes mellitus Z13.1 ; Hirsutism L68.0 and Acanthosis nigricans L83 [place] [address] [place] [id number] [place] [address] 44192- 9532 Jan, Essential hypertension I10 ; Seizure disorder [...] ; Hirsutism L68.0 and Acanthosis nigricans L83 [place] [address] 95078- 3043 Jan, IMMUNIZATIONS No Known Immunizations SOCIAL HISTORY Never Assessed REASON FOR VISIT [facility] obtainded. Rachna B[place] PLAN OF CARE VITAL SIGNS MEDICATIONS Medication Instructions Dosage Frequency Start Date End Date Duration Status Vitamin D 1000 UNIT Orally Once a day 1 tablet 24h Active Valtrex 1 GM Orally as needed 1 tablet Active Ibuprofen 800 MG Orally Three times a day PRN 1 tablet with food or milk as needed Active Levothyroxine Sodium 75 MCG Orally Once a day 1 tablet on an empty stomach in the morning 24h Active Lamictal 200 MG Orally Twice a day 1 tablet 12h Active Zoloft 100 mg Orally Once a day 2 tablets 24h Active Trazodone HCl 150 MG Orally at hs 2 Active Lisinopril 10 MG Orally Once a day 1 tablet 24h Active Cetirizine HCl 10 MG Orally Once a day 1 tablet 24h Active RESULTS No Results PROCEDURES No Known [...]
[2018-07-30] MEDS ORDERED: SIME80TA16 PO (07:54)
[2018-07-30] MEDS ORDERED: DOCU100C37 PO (07:54)
[2018-07-30] MEDS ORDERED: HYDR-34 PO (07:54)
[2018-07-30] MEDS ORDERED: IBUP-844 PO (07:54)
[2018-07-30] MEDS ORDERED: HYDROcodone/APAP 7.5 MG/325 MG (LORTAB, LORCET PLUS) TABLET PO PRN (08:00)
[2018-07-30] MEDS ORDERED: ZOLPIDEM 5 MG (AMBIEN) TAB PO PRN (08:00)
[2018-07-30] MEDS ORDERED: ONDANSETRON 4 MG/2 ML (SDV) Z0FRAN IV PRN (08:00)
[2018-07-30] MEDS ORDERED: ANTACID SUSP 30 ML UDC (MYLANTA) PO PRN (08:00)
[2018-07-30] MEDS ORDERED: CHLORASEPTIC LOZENGE MM PRN (08:00)
[2018-07-30] MEDS ORDERED: SIMETHICONE 80 MG (MYLICON) CHEW PO PRN (08:00)
[2018-07-30] MEDS ORDERED: DOCUSATE SODIUM 100 MG (COLACE) CAP PO PRN (08:00)
[2018-07-30] MEDS ORDERED: GLYCOPYRROLATE 0.2 MG/ML (ROBINUL) 2 ML VIAL ONE (09:16)
[2018-07-30] MEDS ORDERED: NEOSTIGMINE 1 MG/ML 5 ML SYRINGE ONE (09:16)
[2018-07-30] MEDS ORDERED: morphine INJ 10 MG/ML 1ML (SYR OR VIAL) IVP ONE (09:45)
[2018-07-30] MEDS ORDERED: fentaNYL INJECTION 100 MCG/2 ML AMP IVP ONE (09:45)
[2018-07-30] MEDS ORDERED: MEPERIDINE (DEMEROL) INJ 50 MG/ML IVP ONE (09:45)
[2018-07-30] MEDS: KETOROLAC 30 MG/ML VIAL IV PRN ×2 (09:50→16:26)
[2018-07-30] MEDS: ONDANSETRON 4 MG/2 ML (SDV) Z0FRAN IVP PRN ×2 (09:51→11:02)
--- NOTE | 2018-07-30 10:42 | Anesthesia-General Post-Op ---
General Patient Condition Mental Status/LOC: Same as Preop Cardiovascular: Satisfactory Nausea/Vomiting: Absent Respiratory: Satisfactory Pain: Controlled Complications: Absent Post Op Complications Complications None Follow Up Care/Instructions Patient Instructions None needed. Anesthesia/Patient Condition Patient Condition Patient is doing well, no complaints, stable vital signs, no apparent adverse anesthesia problems. No complications reported per nursing. SADA WERNER CRNA Jul 30, 2018 10:42
[2018-07-30 10:45] VITALS: BP 90/55
[2018-07-30 11:50] VITALS: BP 114/55
[2018-07-30] MEDS: LACTATED RINGERS 1,000 ML IV SCH ×2 (12:13→17:00)
[2018-07-30] MEDS ORDERED: FUROSEMIDE 40 MG/4 ML INJ (LASIX) IVP ONE (13:00)
[2018-07-30 13:01] VITALS: BP 129/77
[2018-07-30 15:35] VITALS: BP 139/74
--- NOTE | 2018-07-30 15:53 | OPERATIVE REPORT ---
DATE OF SERVICE: PREOPERATIVE DIAGNOSES: 1. A 27-year-old female with abnormal uterine bleeding. 2. Mental impairment. 3. Morbid obesity. POSTOPERATIVE DIAGNOSES: 1. A 27-year-old female with abnormal uterine bleeding. 2. Mental impairment. 3. Morbid obesity. PROCEDURE: Robotic-assisted total laparoscopic hysterectomy with bilateral salpingectomy. SURGEON: Declan Cristobal DO RETOUCHER PHOTOENGRAVING: SAADIA Gifford ANESTHESIA: General endotracheal. ESTIMATED BLOOD LOSS: 30 mL. URINE OUTPUT: 50 mL, clear at the end of the procedure. FLUIDS: 1800 mL lactated Ringer solution. FINDINGS: Normal appearing uterus, bilateral fallopian tubes and ovaries. SPECIMEN SENT: Uterus, bilateral fallopian tubes. INDICATIONS: This 27-year-old female was a consultation in my office for initially a pelvic exam and Pap smear under anesthesia. The patient has mental impairment and does not fully understand medical necessity for some of these things. She has also been having significantly heavy periods that are debilitating in nature. The patient and her family have to keep a large amount of pads available and on standby because of the amount of bleeding that she has associated with the periods. With the patient's morbid obesity, this is becoming a nuisance as well as they are trying to get her physically active and working with the [employer] team in order to increase her activity and hopefully weight loss. I discussed with the family proceeding with exam under anesthesia, possible Mirena placement as a treatment for her bleeding; however, this would require multiple followup, exposure to anesthesia and exams under anesthesia. We also discussed just proceeding with a hysterectomy at this point due to the patient's future of not being able to take care of children as well as her understanding of the amount of bleeding she is having and this could lead to anemia and the inconvenience it is having and hindrance it is having on her lifestyle and her ability to lose weight. After everything was discussed with the patient's guardians, consent was obtained, risks were reviewed in the preoperative area and the patient was taken to the operating room. OPERATIVE REPORT IN DETAIL: Once in the operating room, general anesthesia was found to be adequate, placed in dorsal lithotomy position, prepped and draped in normal sterile fashion. Weighted speculum was inserted in the patient's vagina after a timeout was performed. A Dc catheter was placed using sterile technique. A right angle retractor was used to visualize the cervix, which was grasped at 12 o'clock position using a single tooth tenaculum. I then placed a 0 Vicryl suture through the anterior lip of the cervix and removed the tenaculum. I then gently sounded the uterine cavity depth, found to be 8 cm. I then selected an 8 cm Erendira uterine manipulator tip and a 3 cm colpotomy ring. I assembled the Erendira uterine manipulator; placing the manipulator tip into the uterine cavity, I deployed the uterine tip balloon and advanced the colpotomy ring around the vaginal fornix, securing it with the manipulator. I then removed all the other instruments from the patient's vagina and performed a change of gloves and took my attention to the abdomen where infraumbilically I infiltrated this area using 0.25% Marcaine to make an 8 mm incision, directed Veress needle through the incision until intraperitoneal placement was confirmed using saline drop test; however, I was unable to insufflate due to the patient's body habitus. Due to the pressures encountered at this place, I was not able to maintain peritoneal access. I then went into the left upper quadrant making a pinpoint incision with the 11 blade at this point at the mid costal margin just infracostal right above the stomach. I introduced the Veress needle through this incision until intraperitoneal placement was confirmed using the saline drop test. I then proceeded with insufflation using CO2 gas, opening pressure of 7 mmHg was noted. I proceeded to maximum pressure of 15 mmHg. At which point, I removed the Veress needle and introduced an 8 mm blunt da Joe camera and trocar through my original infraumbilical incision. Once this was in place, I attached insufflation to this trocar. I was able to confirm intraperitoneal placement using the da Joe laparoscope and there was no evidence of damage from any of my entry sites. I then had the patient placed in steep Trendelenburg. I was able to visualize all the pelvic anatomy as described in my findings above. I did place 2 lateral trocars approximately 8 to 10 cm lateral to my infraumbilical trocar. These were both 8 mm trocars. The skin was infiltrated using 0.25% Marcaine; 8 mm incisions were made and the trocars were directed under direct visualization of the laparoscope into the peritoneal cavity. Once they were in place, I brought in the da Joe robot and docked in the appropriate fashion. I placed the vessel sealer in the left hand and monopolar leslie in the right hand. I performed the following dissection bilaterally, starting at the uteroovarian ligament, bipolar cauterized and transected this using the vessel sealer. I created a window in the mesosalpinx using the monopolar leslie and took this laterally down the mesosalpinx using the vessel sealer, transecting it as I went, amputating the fallopian tube from its surrounding blood supply. I then grasped the round ligament, bipolar cauterized this and transected using the vessel sealer. This allowed me to grasp the entire broad ligament, which I bipolar cauterized and transected using vessel sealer down to the level of the lower uterine segment. I the anterior and posterior leaflets of the broad ligament. The anterior leaflet was dissected around to the anterior vaginal fornix. The posterior leaflet was dissected around to the posterior vaginal fornix. This allowed me to skeletonize the uterine vessels laterally, which I bipolar cauterized and transected using the vessel sealer. I then performed a colpotomy at 12 o'clock position using a monopolar shear and took this circumferentially around the vaginal fornix, amputating the cervix from the vagina. The entire specimen was then removed through the vagina. I then proceeded with closing the vaginal cuff and the lateral vaginal apices. I performed a colposuspending stitch using 2-0 Vicryl suture in a [id number] fashion. Once these were placed, I closed the remainder of the vaginal cuff using running 2-0 V-Loc. Excellent hemostasis was noted after my sutures were in place. I then undocked the da Joe robot and proceeded with the remainder of the case laparoscopically. I copiously irrigated the pelvis using normal saline. Once again, there was no active bleeding noted from any of my dissection planes. I placed FloSeal hemostatic agent over all my planes of dissection. I took the patient out of steep Trendelenburg. I removed the lateral trocars under direct visualization of the laparoscope. Infraumbilical trocar was left in place. I introduced 10 mL of 0.25% Marcaine. I then removed this trocar as well after insufflation was released. The skin was then reapproximated using 4-0 Monocryl in interrupted subcuticular stitches. Dermabond was applied to the incision and bandage was placed over this. The Dc catheter was left in place. Lap and sponge counts were correct at the end of the procedure. Instrument count was correct as well. Ancef 2 g and 500 mg of Flagyl were given preoperatively for infection prophylaxis. Job ID: [id number] DocumentID: [id number] Dictated Date: 07/30/2018 10:36:28 Materials Mgmt Tech Date: 07/30/2018 15:52:53 Dictated By: DO BULMARO WRIGHT
[2018-07-30 18:15] VITALS: BP 139/74
[2018-07-31] MEDS ORDERED: IBUPROFEN 600 MG (MOTRIN) TAB PO PRN (00:30)
== END 2018-07-30 18:15 | disposition home or self-care (01) ==
LOC: SDC 06:47 → WS 10:33 → SDC 18:15
PROVIDERS: ATTEND Obstetrics & Gynecology
DX: N93.9 Abnormal uterine and vaginal bleeding, unspecified (principal); N88.8 Other specified noninflammatory disorders of cervix uteri; F71 Moderate intellectual disabilities; E03.9 Hypothyroidism, unspecified; I10 Essential (primary) hypertension; G40.909 Epilepsy, unspecified, not intractable, without status epilepticus; L83 Acanthosis nigricans; F84.0 Autistic disorder; E66.01 Morbid (severe) obesity due to excess calories; Z68.42 Body mass index [BMI] 45.0-49.9, adult; Z79.899 Other long term (current) drug therapy
CPT/HCPCS: 36415; 84703; 86850; 86900; 86901; 94664

== ENCOUNTER 2019-07-19 12:48 | Outpatient (RCR) | payer MEDICARE, MEDICAID ==
[2019-07-12] MEDS: FERRIC CARBOXYMALTOSE INJ 750 MG in NS (IVPB) 250 ML IV SCH (14:21)
[2019-07-12 14:22] VITALS: BP 133/82
[~2019-07-19] VITALS: Ht 172.7 cm; Wt 136.7 kg
[~2019-07-19 12:48] MED LIST changes: +DOCU100C37 PO; +HYDR-34 PO; +IBUP-844 PO; +SIME80TA16 PO
[2019-07-19 13:09] VITALS: BP 116/76
[2019-07-19] MEDS: FERRIC CARBOXYMALTOSE INJ 750 MG in NS (IVPB) 250 ML IV SCH (13:25)
== END 2019-10-10 | disposition home or self-care (01) ==
LOC: SDC 12:48
PROVIDERS: ATTEND Internal Medicine Gastroenterology
DX: D50.9 Iron deficiency anemia, unspecified (principal)
CPT/HCPCS: 96365

== ENCOUNTER → 2019-10-11 | Outpatient (CLI) | payer MEDICARE, MEDICAID ==
[2019-10-11 10:22] LABS: BASOPHILS % (AUTO) 0 % (0-10); EOSINOPHILS # (AUTO) 0.3 10^3/uL (0.0-0.3); EOSINOPHILS % (AUTO) 4 % (0-10); HEMATOCRIT 44 % (35-52); HEMOGLOBIN 14.2 G/DL (11.5-16.0); LYMPHOCYTES # (AUTO) 1.2 X 10^3 (1.0-4.0); LYMPHOCYTES % (AUTO) 18 % (12-44); MEAN CORPUSCULAR HEMOGLOBIN 29 PG (25-34); MEAN CORPUSCULAR HGB CONC 32 G/DL (32-36); MEAN CORPUSCULAR VOLUME 89 FL (80-99); MONOCYTES # (AUTO) 0.5 X 10^3 (0.0-1.0); MONOCYTES % (AUTO) 8 % (0-12); NEUTROPHILS # (AUTO) 4.6 X 10^3 (1.8-7.8); NEUTROPHILS % (AUTO) 70 % (42-75); PLATELET COUNT 346 10^3/uL (130-400); RED CELL DISTRIBUTION WIDTH 13.2 % (10.0-14.5); WHITE BLOOD COUNT 6.7 10^3/uL (4.3-11.0)
[2019-10-11 10:33] LABS: PROTHROMBIN TIME PATIENT 13.4 SEC (12.2-14.7)
[2019-10-11 10:41] LABS: ALANINE AMINOTRANSFERASE 31 U/L (0-55); ALBUMIN 4.2 GM/DL (3.2-4.5); ALKALINE PHOSPHATASE 281 U/L (40-136); BILIRUBIN,TOTAL 0.3 MG/DL (0.1-1.0); BUN/CREATININE RATIO 16; CALCIUM 9.3 MG/DL (8.5-10.1); CARBON DIOXIDE 23 MMOL/L (21-32); CHLORIDE 105 MMOL/L (98-107); CREATININE SERUM 0.77 MG/DL (0.60-1.30); GFR ESTIMATED > 60; GLUCOSE 87 MG/DL (70-105); POTASSIUM 4.3 MMOL/L (3.6-5.0); SODIUM 140 MMOL/L (135-145); TOTAL PROTEIN 7.1 GM/DL (6.4-8.2)
== END ==
LOC: LAB 10:01
PROVIDERS: ATTEND Internal Medicine Gastroenterology
DX: D50.9 Iron deficiency anemia, unspecified (principal); D13.4 Benign neoplasm of liver
CPT/HCPCS: 36415; 80053; 82728; 83540; 85025; 85610

== ENCOUNTER → 2019-11-09 | Outpatient (CLI) | payer MEDICARE, MEDICAID ==
[2019-11-09 13:01] LABS: BASOPHILS % (AUTO) 0 % (0-10); EOSINOPHILS # (AUTO) 0.1 10^3/uL (0.0-0.3); EOSINOPHILS % (AUTO) 1 % (0-10); HEMATOCRIT 42 % (35-52); HEMOGLOBIN 13.3 G/DL (11.5-16.0); LYMPHOCYTES # (AUTO) 1.2 X 10^3 (1.0-4.0); LYMPHOCYTES % (AUTO) 11 % (12-44); MEAN CORPUSCULAR HEMOGLOBIN 29 PG (25-34); MEAN CORPUSCULAR HGB CONC 32 G/DL (32-36); MEAN CORPUSCULAR VOLUME 90 FL (80-99); MEAN PLATELET VOLUME 8.4 FL (7.4-10.4); MONOCYTES # (AUTO) 1.1 X 10^3 (0.0-1.0); MONOCYTES % (AUTO) 10 % (0-12); NEUTROPHILS # (AUTO) 8.5 X 10^3 (1.8-7.8); NEUTROPHILS % (AUTO) 78 % (42-75); PLATELET COUNT 709 10^3/uL (130-400); RED CELL DISTRIBUTION WIDTH 12.6 % (10.0-14.5)
[2019-11-09 13:24] LABS: ALANINE AMINOTRANSFERASE 31 U/L (0-55); ALBUMIN 3.9 GM/DL (3.2-4.5); ALKALINE PHOSPHATASE 463 U/L (40-136); BILIRUBIN,TOTAL 0.3 MG/DL (0.1-1.0); BUN/CREATININE RATIO 15; CARBON DIOXIDE 21 MMOL/L (21-32); CHLORIDE 104 MMOL/L (98-107); CREATININE SERUM 0.82 MG/DL (0.60-1.30); GFR ESTIMATED > 60; GLUCOSE 89 MG/DL (70-105); POTASSIUM 4.1 MMOL/L (3.6-5.0); SODIUM 139 MMOL/L (135-145); TOTAL PROTEIN 8.2 GM/DL (6.4-8.2)
== END ==
LOC: LAB 12:39
PROVIDERS: ATTEND Radiology Diagnostic Radiology
DX: Z01.818 Encounter for other preprocedural examination (principal); D13.4 Benign neoplasm of liver
CPT/HCPCS: 36415; 80053; 85025

== ENCOUNTER → 2019-12-22 | Outpatient (CLI) | payer MEDICARE, MEDICAID ==
[2019-12-22 12:53] LABS: BASOPHILS % (AUTO) 0 % (0-10); EOSINOPHILS # (AUTO) 0.1 10^3/uL (0.0-0.3); EOSINOPHILS % (AUTO) 1 % (0-10); HEMATOCRIT 39 % (35-52); HEMOGLOBIN 12.2 G/DL (11.5-16.0); LYMPHOCYTES # (AUTO) 2.1 X 10^3 (1.0-4.0); LYMPHOCYTES % (AUTO) 21 % (12-44); MEAN CORPUSCULAR HEMOGLOBIN 27 PG (25-34); MEAN CORPUSCULAR HGB CONC 32 G/DL (32-36); MEAN CORPUSCULAR VOLUME 87 FL (80-99); MEAN PLATELET VOLUME 8.3 FL (7.4-10.4); MONOCYTES # (AUTO) 0.9 X 10^3 (0.0-1.0); MONOCYTES % (AUTO) 9 % (0-12); NEUTROPHILS # (AUTO) 7.1 X 10^3 (1.8-7.8); NEUTROPHILS % (AUTO) 70 % (42-75); PLATELET COUNT 635 10^3/uL (130-400); WHITE BLOOD COUNT 10.3 10^3/uL (4.3-11.0)
[2019-12-22 13:17] LABS: ALANINE AMINOTRANSFERASE 35 U/L (0-55); ALBUMIN 3.8 GM/DL (3.2-4.5); ALKALINE PHOSPHATASE 367 U/L (40-136); BILIRUBIN,TOTAL 0.3 MG/DL (0.1-1.0); BUN/CREATININE RATIO 15; CARBON DIOXIDE 21 MMOL/L (21-32); CHLORIDE 105 MMOL/L (98-107); CREATININE SERUM 0.85 MG/DL (0.60-1.30); GFR ESTIMATED > 60; GLUCOSE 94 MG/DL (70-105); POTASSIUM 4.2 MMOL/L (3.6-5.0); SODIUM 139 MMOL/L (135-145); TOTAL PROTEIN 8.7 GM/DL (6.4-8.2)
== END ==
LOC: LAB 12:29
PROVIDERS: ATTEND Radiology Diagnostic Radiology
DX: D13.4 Benign neoplasm of liver (principal)
CPT/HCPCS: 36415; 80053; 85025

== ENCOUNTER → 2020-01-27 | Outpatient (CLI) | payer MEDICARE, MEDICAID ==
[~2020-01-27] MED LIST changes: +CATHETER FLUSH 10 ML SYR IV PRN; +HOLD METFORMIN - RECEIVED CONTRAST 20 ML VIAL IV SCH; +IOHEXOL 350 MG/ML 100 ML (OMNIPAQUE 350) VIAL IV ONE; +NS 100 ML (IVPB) BAG IV ONE
--- NOTE | 2020-01-27 10:44 | Diagnostic Imaging Report ---
PROCEDURE: CT abdomen with and without contrast. TECHNIQUE: Multiple contiguous axial CT images of the abdomen were obtained prior to and after intravenous administration of iodinated contrast. Auto Exposure Controls were utilized during the CT exam to meet ALARA standards for radiation dose reduction. INDICATION: Liver lesions. COMPARISON: No prior studies are available for comparison. FINDINGS: The lung bases are clear. Multiple low-density liver lesions are present. A lesion in the dome of the right lobe posteriorly measures approximately 7.1 cm transverse. The largest lesion is just inferior to this in the right lobe measuring 12.4 cm in AP diameter. Small low-density lesion in the left lobe is approximately 2.1 cm in diameter. These do not appear to demonstrate significant contrast enhancement. The gallbladder is unremarkable. No biliary ductal dilatation is seen. The pancreas and spleen are unremarkable. No adrenal mass is detected. Kidneys are unremarkable. Aorta is non-aneurysmal. The bowel loops are normal in caliber. There is no obstruction. There is no ascites. Bony structures are nonacute. IMPRESSION: Numerous low-density lesions within the liver, largest in the right lobe, approximately 12.4 cm in diameter. These may represent large hepatic cysts. Correlation with ultrasound could be performed for further evaluation. Dictated by: Dictated on workstation # [id number]
== END ==
LOC: RAD 09:05
PROVIDERS: ATTEND Internal Medicine Gastroenterology
DX: D13.4 Benign neoplasm of liver (principal)
CPT/HCPCS: 74170

== ENCOUNTER 2022-02-27 13:04 | Outpatient (RCR) | payer MEDICARE, MEDICAID ==
[~2022-02-27 13:04] MED LIST changes: -CATHETER FLUSH 10 ML SYR IV PRN; -HOLD METFORMIN - RECEIVED CONTRAST 20 ML VIAL IV SCH; -IOHEXOL 350 MG/ML 100 ML (OMNIPAQUE 350) VIAL IV ONE; -LISI10TA2 PO; +LISI10TA25 PO; -NS 100 ML (IVPB) BAG IV ONE
== END 2022-02-28 ==
LOC: ONC 13:04
PROVIDERS: ATTEND Internal Medicine Hematology & Oncology
DX: D75.839 Thrombocytosis, unspecified (principal); I10 Essential (primary) hypertension; E66.01 Morbid (severe) obesity due to excess calories; E03.9 Hypothyroidism, unspecified
CPT/HCPCS: 99214

== ENCOUNTER 2022-06-04 13:01 | Outpatient (RCR) | payer MEDICARE, MEDICAID | END 2022-06-30 | disposition home or self-care (01) | LOC: ONC 13:01 | PROVIDERS: ATTEND Internal Medicine Hematology & Oncology | DX: D75.839 Thrombocytosis, unspecified (principal); E03.9 Hypothyroidism, unspecified; I10 Essential (primary) hypertension; E66.01 Morbid (severe) obesity due to excess calories | CPT/HCPCS: 99213 ==

== ENCOUNTER 2022-09-11 13:21 | Outpatient (RCR) | payer MEDICARE, MEDICAID ==
[2022-09-11 14:06] LABS: BASOPHILS % (AUTO) 0 % (0-10); EOSINOPHILS # (AUTO) 0.3 10^3/uL (0.0-0.3); EOSINOPHILS % (AUTO) 3 % (0-10); HEMATOCRIT 47 % (35-52); HEMOGLOBIN 14.7 g/dL (11.5-16.0); LYMPHOCYTES # (AUTO) 1.4 10^3/uL (1.0-4.0); LYMPHOCYTES % (AUTO) 15 % (12-44); MEAN CORPUSCULAR HEMOGLOBIN 27 pg (25-34); MEAN CORPUSCULAR HGB CONC 32 g/dL (32-36); MEAN CORPUSCULAR VOLUME 86 fL (80-99); MEAN PLATELET VOLUME 8.6 fL (9.0-12.2); MONOCYTES # (AUTO) 0.7 10^3/uL (0.0-1.0); MONOCYTES % (AUTO) 8 % (0-12); NEUTROPHILS # (AUTO) 6.5 10^3/uL (1.8-7.8); NEUTROPHILS % (AUTO) 74 % (42-75); PLATELET COUNT 605 10^3/uL (130-400); WHITE BLOOD COUNT 8.8 10^3/uL (4.3-11.0)
== END 2022-09-30 | disposition home or self-care (01) ==
LOC: ONC 13:21
PROVIDERS: ATTEND Internal Medicine Hematology & Oncology
DX: D75.839 Thrombocytosis, unspecified (principal); E03.9 Hypothyroidism, unspecified; I10 Essential (primary) hypertension; E66.01 Morbid (severe) obesity due to excess calories
CPT/HCPCS: 85025; G0463; 99213

== ENCOUNTER 2022-11-21 16:12 | Observation (INO) | payer MEDICARE, MEDICAID ==
[~2022-11-21] VITALS: Ht 167.7 cm; Wt 112.2 kg
[2022-11-21] MEDS ORDERED: ONDANSETRON 4 MG/2 ML (SDV) Z0FRAN ONE (16:27)
[2022-11-21] MEDS ORDERED: NS IV 1000 ML 1,000 ML ONE (16:28)
[2022-11-21] MEDS ORDERED: NS IV 1000 ML 1,000 ML IV SCH ×2 (16:30→17:15)
[2022-11-21] MEDS ORDERED: ONDANSETRON 4 MG/2 ML (SDV) Z0FRAN IVP ONE (16:30)
--- NOTE | 2022-11-21 16:41 | ED Abdominal Pain ---
General Chief Complaint: Abdominal/GI Problems Stated Complaint: VOMITING, LOW OXYGEN LEVEL Nursing Triage Note: PT ARRIVE POV AND WAS SENT FROM [facility]. PT STATES THAT SHE HAS HAD N/V X2 WEEKS. Source of Information: Caregiver Exam Limitations: Other (mental handicap) History of Present Illness Date Seen by Provider: Nov 21, 2022 Time Seen by Provider: 16:32 Initial Comments 32-year-old female with autism presents to the emergency department with her grandmother with complaints of vomiting over the last 2 weeks. Reports she has had difficulty keeping food, water, and her medications down. Occasionally she is able to keep food down. Patient denies any abdominal pain. Patient's grandmother reports that vomiting is sometimes related to eating and sometimes is not. Reports that yesterday she slept all day and had not eaten and woke up and had an episode of emesis shortly after waking. Patient denies diarrhea. Patient is unsure of last BM. Patient unable to guess approximately how long ago her last bowel movement was, unsure if it has been days or more than a week. Patient does take Colace and has issues with constipation. Patient sees a liver specialist at and has had surgery on her liver and liver biopsies in the past. Last biopsy was Aug of this year. Patient has had hysterectomy. Patient denies any urinary symptoms, denies dysuria. Timing/Duration: Other (2 weeks) Associated Symptoms: Other (chills) Allergies and Home Medications Allergies Coded Allergies: cefaclor (Verified Allergy, Mild, HIVES, 07/20/18) Patient Home Medication List Home Medication List Reviewed: Yes Ascorbic Acid (Vitamin C) 500 Mg Capsule, 500 MG PO DAILY, (Reported) Entered as Reported by: NORA BAUTISTA on 07/20/18 1255 Cholecalciferol (Vitamin D3) (Vitamin D3) 5,000 Unit Tab.rapdis, 5,000 UNIT PO DAILY, (Reported) Entered as Reported by: NORA BAUTISTA on 07/20/18 1255 Docusate Sodium (Docusate Sodium) 100 Mg Capsule, 100 MG PO BID PRN for CONSTIPATION-1ST LINE Prescribed by: GRICEL HEATH on 07/30/18 0754 Ferrous Sulfate (Ferrous Sulfate) 325 Mg Tablet, 325 MG PO DAILY, (Reported) Entered as Reported by: NORA BAUTISTA on 07/20/18 125 Fluticasone Propionate (Flonase Allergy Relief) 9.9 Ml [place].susp, 1 SPRAY NS DAILY, (Reported) Entered as Reported by: NORA BAUTISTA on 07/20/18 125 Hydrocodone Bit/Acetaminophen (Lortab 7.5 Mg Tablet) 1 Ea Tablet, 2 EA PO Q6H PRN for Pain-See Instructions Prescribed by: GRICEL HEATH on 07/30/18 075 Ibuprofen (Ibu) 600 Mg Tablet, 600 MG PO Q6H PRN for PAIN-MODERATE Prescribed by: GRICEL HEATH on 07/30/18 075 Lamotrigine (Lamictal Xr) 200 Mg Tab.er.24, 200 MG PO BID, (Reported) Entered as Reported by: NORA BAUTISTA on 07/20/18 125 Levothyroxine Sodium (Levothyroxine Sodium) 75 Mcg Tablet, 75 MCG PO DAILY, (Re ported) Entered as Reported by: NORA BAUTISTA on 07/20/18 125 Lisinopril (Lisinopril) 10 Mg Tablet, 10 MG PO DAILY, (Reported) Entered as Reported by: NORA BAUTISTA on 07/20/18 125 Loratadine (Loratadine) 10 Mg Tablet, 10 MG PO HS, (Reported) Entered as Reported by: NORA BAUTISTA on 07/20/181254 Melatonin/Pyridoxine HCl (B6) (Melatonin 10 mg Tablet) 1 Each Tab.mphase, 1 EACH PO HS, (Reported) Entered as Reported by: NORA BAUTISTA on 07/20/181254 Sertraline HCl (Zoloft) 100 Mg Tablet, 100 MG PO BID, (Reported) Entered as Reported by: NORA BAUTISTA on 07/20/18 125 Simethicone (Simethicone) 80 Mg Tab.chew, 40 MG PO TID PRN for INDIGESTION 2ND LINE Prescribed by: GRICEL HEATH on 07/30/18 075 Trazodone HCl (Trazodone HCl) 150 Mg Tablet, 300 MG PO HS, (Reported) Entered as Reported by: NORA BAUTISTA on 07/20/18 1255 Valacyclovir HCl (Valtrex) 1,000 Mg Tablet, 1,000 MG PO DAILY PRN for COLD SORES, (Reported) Entered as Reported by: NORA BAUTISTA on 07/20/18 1255 Review of Systems Review of Systems Constitutional: chills Respiratory: No Symptoms Reported Cardiovascular: No Symptoms Reported Gastrointestinal: Denies Abdominal Pain; Constipated; Denies Diarrhea; Nausea, Vomiting Genitourinary: No Symptoms Reported Past Wnjgbnq-[id number]-[id number] Hx Patient Social History Tobacco Use?: No Substance use?: No Alcohol Use?: No Immunizations Up To Date Influenza Vaccine Up-to-Date: Yes; Up-to-Date Seasonal Allergies Seasonal Allergies: Yes Past Medical History Tonsillectomy Hypertension Headaches /Migraines, Seizure Disorder Reproductive Disorders: Yes (AUB) Female Reproductive Disorders: Menstrual Problems Sexually Transmitted Disease: No HIV/AIDS: No Liver Disease/Jaundice Loss of Vision: Bilateral Hearing Impairment: Denies Anxiety, Depression Adverse Reaction/Blood Tranf: No (N/A) Physical Exam Vital Signs Vital Signs - First Documented 11/21/22 11/21/22 16:18 17:09 Temp 37.1 Pulse 129 B/P (MAP) 113/64 (80) Pulse Ox 95 O2 Delivery Room Air Capillary Refill : Height/Weight/BMI Height: 5'8.00" Weight: 301lbs. 7.0oz. [id number]; 39.00 BMI Method: General Appearance: WD/WN, mild distress, obese Neck: supple, normal inspection Respiratory: chest non-tender, lungs clear, normal breath sounds, no respiratory distress, no accessory muscle use Cardiovascular: regular rate, rhythm, no edema, no gallop, no JVD, no murmur Gastrointestinal: normal bowel sounds, non tender, soft, no organomegaly, no pulsatile mass Back: normal inspection Neurologic/Psychiatric: alert, normal mood/affect Skin: normal color, warm/dry Focused Exam Lactate Level 11/21/22 17:25: Lactic Acid Level 0.73 Lactic Acid Level Laboratory Tests Test 11/21/22 17:25 Lactic Acid Level 0.73 MMOL/L (0.50-2.00) Progress/Results/Core Measures Results/Orders Lab Results Laboratory Tests Test 11/21/22 16:24 11/21/22 16:57 11/21/22 17:25 Range/Units White Blood Count 19.9 H 4.3-11.0 10^3/uL Red Blood Count 4.83 3.80-5.11 10^6/uL Hemoglobin 13.7 11.5-16.0 g/dL Hematocrit 42 35-52 % Mean Corpuscular Volume 86 80-99 fL Mean Corpuscular Hemoglobin 28 25-34 pg Mean Corpuscular Hemoglobin Concent 33 32-36 g/dL Red Cell Distribution Width 14.8 H 10.0-14.5 % Platelet Count 586 H 130-400 10^3/uL Mean Platelet Volume 8.5 L 9.0-12.2 fL Immature Granulocyte % (Auto) 1 % Neutrophils (%) (Auto) 83 H 42-75 % Lymphocytes (%) (Auto) 6 L 12-44 % Monocytes (%) (Auto) 10 0-12 % Eosinophils (%) (Auto) 1 0-10 % Basophils (%) (Auto) 0 0-10 % Neutrophils # (Auto) 16.5 H 1.8-7.8 10^3/uL Lymphocytes # (Auto) 1.2 1.0-4.0 10^3/uL Monocytes # (Auto) 2.0 H 0.0-1.0 10^3/uL Eosinophils # (Auto) 0.1 0.0-0.3 10^3/uL Basophils # (Auto) 0.1 0.0-0.1 10^3/uL Immature Granulocyte # (Auto) 0.1 0.0-0.1 10^3/uL Neutrophils % (Manual) 84 % Lymphocytes % (Manual) 8 % Monocytes % (Manual) 8 % Blood Morphology Comment NORMAL Prothrombin Time 15.1 H 12.2-14.7 SEC INR Comment 1.1 0.8-1.4 Activated Partial Thromboplast Time 27 24-35 SEC Sodium Level 136 135-145 MMOL/L Potassium Level 4.2 3.6-5.0 MMOL/L Chloride Level 105 98-107 MMOL/L Carbon Dioxide Level 14 L 21-32 MMOL/L Anion Gap 17 H 5-14 MMOL/L Blood Urea Nitrogen 15 7-18 MG/DL Creatinine 0.92 0.60-1.30 MG/DL Estimat Glomerular Filtration Rate 85 BUN/Creatinine Ratio 16 Glucose Level 123 H 70-105 MG/DL Calcium Level 9.9 8.5-10.1 MG/DL Corrected Calcium 9.9 8.5-10.1 MG/DL Total Bilirubin 0.9 0.1-1.0 MG/DL Aspartate Amino Transf (AST/SGOT) 11 5-34 U/L Alanine Aminotransferase (ALT/SGPT) 21 0-55 U/L Alkaline Phosphatase 383 H 40-136 U/L Total Protein 8.1 6.4-8.2 GM/DL Albumin 4.0 3.2-4.5 GM/DL Lipase 7 L 8-78 U/L Urine Color ORANGE Urine Clarity CLOUDY Urine pH 5.0 5-9 Urine Specific [place] >=1.030 1.016-1.022 Urine Protein NEGATIVE NEGATIVE Urine Glucose (UA) NEGATIVE NEGATIVE Urine Ketones TRACE H NEGATIVE Urine Nitrite NEGATIVE NEGATIVE Urine Bilirubin 2+ H NEGATIVE Urine Urobilinogen 0.2 < = 1.0 MG/DL Urine Leukocyte Esterase NEGATIVE NEGATIVE Urine RBC (Auto) NEGATIVE NEGATIVE Urine RBC NONE /HPF Urine WBC 0-2 /HPF Urine Squamous Epithelial Cells 10-25 H /HPF Urine Crystals PRESENT H /LPF Urine Tyrosine Crystals LARGE H /LPF Urine Bacteria MODERATE H /HPF Urine Casts NONE /LPF Urine Mucus NEGATIVE /LPF Urine Culture Indicated YES Lactic Acid Level 0.73 0.50-2.00 MMOL/L My Orders Orders - JAJA FERMIN APRN Urine Bedside (11/21/22 16:19) Ua Culture If Indicated (11/21/22 16:19) Ed Iv/Invasive Line Start (11/21/22 16:24) Ns Iv 1000 Ml (Sodium Chloride 0.9%) (11/21/22 16:30) Ondansetron Injection (Zofran Injectio (11/21/22 16:30) Ondansetron Injection (Zofran Injectio (11/21/22 16:27) Ns Iv 1000 Ml (Sodium Chloride 0.9%) (11/21/22 16:28) Comprehensive Metabolic Panel (11/21/22 16:36) Lipase (11/21/22 16:36) Cbc With Automated Diff (11/21/22 16:36) Manual Differential (11/21/22 16:24) Blood Culture (11/21/22 17:04) Protime With Inr (11/21/22 17:04) Partial Thromboplastin Time (11/21/22 17:04) Vital Signs Adult Sepsis Patie Q15M (11/21/22 17:04) O2 (11/21/22 17:04) Lactic Acid Analyzer (11/21/22 17:04) Piperacillin Sodium/Tazobactam (Zosyn Vi (11/21/22 17:15) Ns Iv 1000 Ml (Sodium Chloride 0.9%) (11/21/22 17:15) Urine Culture (11/21/22 16:57) Ns (Ivpb) (Sodium Chloride 0.9% Ivpb Bag (11/21/22 17:30) Ct Abdomen/Pelvis Wo (11/21/22 17:26) Ed Admission (Communication) (11/21/22 20:55) Medications Given in ED Current Medications Medications Dose Ordered Sig/Giovani Route Start Time Stop Time Status Last Admin Dose Admin Ondansetron HCl 4 mg ONCE ONCE IVP 11/21/22 16:30 11/21/22 16:31 DC 11/21/22 16:31 4 MG Piperacillin Sod/ Tazobactam Sod 4.5 gm/Sodium Chloride 100 ml @ 200 mls/hr ONCE ONCE IV 11/21/22 17:15 11/21/22 17:44 DC 11/21/22 17:50 200 MLS/HR Sodium Chloride 100 ml ONCE ONCE IV 11/21/22 17:30 11/21/22 17:31 DC 11/21/22 17:50 100 ML Vital Signs/I&O 11/21/22 11/21/22 16:18 17:09 Temp 37.1 Pulse 129 B/P (MAP) 113/64 (80) Pulse Ox 95 O2 Delivery Room Air Blood Pressure Mean: 80 Progress Progress Note #1: Time: 16:40 Progress Note Basic labs, UA, KUB ordered for vomiting and suspected constipation. Progress Note #2: Time: 17:15 Progress Note Elevated WBC on CBC. Septic workup initiated at this time. KUB changed to CT wi thout contrast due to large amount tyrosine crystals in urine. Progress Note #3: Time: 18:[address] report complete. This provider spoke with caregiver again to clarify the last time patient had surgery or a procedure on her abdomen or liver. Caregiver denies any recent surgeries. Pt states she last saw the liver specialist at in May or May. Progress Note #4: Time: 19:27 Progress Note Spoke with Dr. Mckeon about patient. He recommends transfer to . transfer center called at this time. Waiting for callback from . Grandmother updated on results and plan. Progress Note #5: Time: 20:50 Progress Note Patient and family updated on plan of care. Discussed with grandmother and patient that patient would be admitted upstairs overnight. In the morning they will attempt to transfer her to . Patient is feeling much better, she is laughing and joking with family and provider. Diagnostic Imaging Diagonstic Imaging: CT Plain Films/CT/US/NM/MRI: abdomen Comments Date of Exam:11/21/22 CT ABDOMEN/PELVIS WO PROCEDURE: CT abdomen and pelvis without contrast. TECHNIQUE: Multiple contiguous axial images were obtained through the abdomen and pelvis without the use of intravenous contrast. Auto Exposure Controls were utilized during the CT exam to meet ALARA standards for radiation dose reduction. INDICATION: Leukocytosis and vomiting. COMPARISON: Prior CT study from January 27, 2020. FINDINGS: The visualized lung bases demonstrate minimal atelectasis and are otherwise clear. There is no pleural or pericardial effusion. On the prior comparison examination from 2019, there are multiple low-density lesions evident within the liver. On today's examination, a single low density lesion persists within the right hepatic lobe. This demonstrates some peripheral calcification which appears to be new from the prior exam. There is no gas demonstrated within this intrahepatic cystic lesion. Additionally, there is new abnormal inflammatory appearing soft tissue demonstrated along the inferior aspect of the right hepatic lobe abutting the lateral right abdominal wall. This process appears to be separate from the adjacent hepatic flexure. There is also some gas demonstrated within this process. Neoplasm is felt unlikely in a patient of this age. This likely reflects a soft tissue infection and abscess. With regards to the gas within the hepatic lesion, this may reflect superinfection or could possibly relate to a recent procedure. The pancreas demonstrate no abnormality. The spleen is normal in size. There is no adrenal mass. The kidneys are nonobstructed without urolithiasis or perinephric fat stranding. There is no finding of bowel obstruction or abnormal bowel thickening. The appendix is normal. There is no free fluid within the pelvis. Urinary bladder is nondistended. Patient is status post prior hysterectomy. The ovaries appear unremarkable. There are no findings of pathologic enlargement of abdominal or pelvic lymph nodes. The aorta is normal in caliber. There is no acute or suspicious osseous abnormality. IMPRESSION: 1. One of the large liver lesions within the right hepatic lobe remains present and now demonstrates gas within this collection. This could relate to superinfection with a gas-forming organism or could relate to a recent procedure, if clinically appropriate. 2. New abnormal soft tissue attenuation along the inferior aspect of the right hepatic lobe that may reflect an infectious process as there is gas present. This could also relate to a recent procedure. Blood products are not excluded. This process appears to be separate from the adjacent colon. 3. No free fluid within the pelvis or findings of an additional abdominal or pelvic fluid collection or abscess. Dictated by: Dictated on workstation # [id number] Dict: 11/21/221741 Trans: 11/21/221854 [facility] [id number] Interpreted by: GINGER MATTHEW MD Electronically signed by: GINGER MATTHEW MD 11/21/221854 Departure Communication (Admissions) Time/Spoke to Admitting Phy: 20:[address] Bruce. Time/Spoke to Consulting Phy: 19:[address] Mckeon concerning pt's CT scan report. Impression Primary Impression: Liver abscess Disposition: ADMITTED INPATIENT Condition: Stable Admissions Decision to Admit Reason: Admit from ER (General) Decision to Admit/Date: Nov 21, 2022 Time/Decision to Admit Time: 20:50 Departure-Patient Inst. Referrals: CLAUDIO BURKETT DO (PCP) Primary Care Physician JAJA FERMIN APRN Nov 21, 2022 16:40
[2022-11-21 16:42] LABS: BASOPHILS # (AUTO) 0.1 10^3/uL (0.0-0.1); BASOPHILS % (AUTO) 0 % (0-10); EOSINOPHILS # (AUTO) 0.1 10^3/uL (0.0-0.3); EOSINOPHILS % (AUTO) 1 % (0-10); HEMATOCRIT 42 % (35-52); HEMOGLOBIN 13.7 g/dL (11.5-16.0); LYMPHOCYTES # (AUTO) 1.2 10^3/uL (1.0-4.0); LYMPHOCYTES % (AUTO) 6 % (12-44); MEAN CORPUSCULAR HEMOGLOBIN 28 pg (25-34); MEAN CORPUSCULAR HGB CONC 33 g/dL (32-36); MEAN CORPUSCULAR VOLUME 86 fL (80-99); MEAN PLATELET VOLUME 8.5 fL (9.0-12.2); MONOCYTES % (AUTO) 10 % (0-12); NEUTROPHILS # (AUTO) 16.5 10^3/uL (1.8-7.8); NEUTROPHILS % (AUTO) 83 % (42-75); PLATELET COUNT 586 10^3/uL (130-400); WHITE BLOOD COUNT 19.9 10^3/uL (4.3-11.0)
[2022-11-21 16:49] LABS: POTASSIUM 4.2 MMOL/L (3.6-5.0)
[2022-11-21 16:50] LABS: CALCIUM 9.9 MG/DL (8.5-10.1)
[2022-11-21 16:51] LABS: TOTAL PROTEIN 8.1 GM/DL (6.4-8.2)
[2022-11-21 16:53] LABS: BILIRUBIN,TOTAL 0.9 MG/DL (0.1-1.0)
[2022-11-21 16:55] LABS: CREATININE SERUM 0.92 MG/DL (0.60-1.30)
[2022-11-21 16:59] LABS: CLARITY,URINE CLOUDY; COLOR,URINE ORANGE; GLUCOSE, URINE (UA) NEGATIVE (NEGATIVE); KETONES,URINE TRACE (NEGATIVE); LEUKOCYTE ESTERASE ,URINE NEGATIVE (NEGATIVE); NITRITE,URINE NEGATIVE (NEGATIVE); PROTEIN,URINE NEGATIVE (NEGATIVE)
[2022-11-21 17:07] LABS: BILIRUBIN,URINE 2+ (NEGATIVE)
[2022-11-21] MEDS ORDERED: PIPERACILLIN SODIUM/TAZOBACTAM 4.5 GM in NS (IVPB) 100 ML IV ONE (17:15)
[2022-11-21 17:16] LABS: BACTERIA,URINE MODERATE /HPF; TYROSINE CRYSTAL,URINE LARGE /LPF; WBC,URINE 0-2 /HPF
[2022-11-21 17:29] LABS: LYMPHOCYTES % (MANUAL) 8 %; MONOCYTES % (MANUAL) 8 %; NEUTROPHILS % (MANUAL) 84 %; RBC MORPH NORMAL
[2022-11-21 17:30] LABS: INR 1.1 (0.8-1.4); PROTHROMBIN TIME PATIENT 15.1 SEC (12.2-14.7)
[2022-11-21] MEDS ORDERED: IOHEXOL 350 MG/ML 100 ML (OMNIPAQUE 350) VIAL IV ONE (17:30)
[2022-11-21] MEDS ORDERED: NS 100 ML (IVPB) BAG IV ONE (17:30)
[2022-11-21] MEDS ORDERED: CATHETER FLUSH 10 ML SYR IV PRN (17:30)
--- NOTE | 2022-11-21 17:54 | Diagnostic Imaging Report ---
PROCEDURE: CT abdomen and pelvis without contrast. TECHNIQUE: Multiple contiguous axial images were obtained through the abdomen and pelvis without the use of intravenous contrast. Auto Exposure Controls were utilized during the CT exam to meet ALARA standards for radiation dose reduction. INDICATION: Leukocytosis and vomiting. COMPARISON: Prior CT study from January 27, 2020. FINDINGS: The visualized lung bases demonstrate minimal atelectasis and are otherwise clear. There is no pleural or pericardial effusion. On the prior comparison examination from 2019, there are multiple low-density lesions evident within the liver. On today's examination, a single low density lesion persists within the right hepatic lobe. This demonstrates some peripheral calcification which appears to be new from the prior exam. There is no gas demonstrated within this intrahepatic cystic lesion. Additionally, there is new abnormal inflammatory appearing soft tissue demonstrated along the inferior aspect of the right hepatic lobe abutting the lateral right abdominal wall. This process appears to be separate from the adjacent hepatic flexure. There is also some gas demonstrated within this process. Neoplasm is felt unlikely in a patient of this age. This likely reflects a soft tissue infection and abscess. With regards to the gas within the hepatic lesion, this may reflect superinfection or could possibly relate to a recent procedure. The pancreas demonstrate no abnormality. The spleen is normal in size. There is no adrenal mass. The kidneys are nonobstructed without urolithiasis or perinephric fat stranding. There is no finding of bowel obstruction or abnormal bowel thickening. The appendix is normal. There is no free fluid within the pelvis. Urinary bladder is nondistended. Patient is status post prior hysterectomy. The ovaries appear unremarkable. There are no findings of pathologic enlargement of abdominal or pelvic lymph nodes. The aorta is normal in caliber. There is no acute or suspicious osseous abnormality. IMPRESSION: 1. One of the large liver lesions within the right hepatic lobe remains present and now demonstrates gas within this collection. This could relate to superinfection with a gas-forming organism or could relate to a recent procedure, if clinically appropriate. 2. New abnormal soft tissue attenuation along the inferior aspect of the right hepatic lobe that may reflect an infectious process as there is gas present. This could also relate to a recent procedure. Blood products are not excluded. This process appears to be separate from the adjacent colon. 3. No free fluid within the pelvis or findings of an additional abdominal or pelvic fluid collection or abscess. Dictated by: Dictated on workstation # [id number]
[2022-11-21 21:51] VITALS: BP 106/67
[2022-11-21] MEDS ORDERED: MELATONIN 10 MG TABLET PO SCH (22:00)
[2022-11-21] MEDS ORDERED: traZODone 150 MG (DESYREL) TABLET PO SCH (22:00)
[2022-11-21] MEDS ORDERED: CATHETER FLUSH 10 ML SYR IVP PRN (22:15)
[2022-11-21] MEDS ORDERED: ONDANSETRON 4 MG/2 ML (SDV) Z0FRAN IV PRN (22:15)
[2022-11-21] MEDS: SERTRALINE 100 MG (ZOLOFT) TAB PO SCH (23:14)
[2022-11-21] MEDS: PIPERACILLIN SODIUM/TAZOBACTAM 4.5 GM in NS (IVPB) 100 ML IV SCH (23:14)
[2022-11-22 00:05] VITALS: BP 103/52
[2022-11-22 03:24] VITALS: BP 104/55
[2022-11-22] MEDS: PIPERACILLIN SODIUM/TAZOBACTAM 4.5 GM in NS (IVPB) 100 ML IV SCH (05:25)
[2022-11-22 05:58] LABS: BASOPHILS % (AUTO) 0 % (0-10); EOSINOPHILS # (AUTO) 0.1 10^3/uL (0.0-0.3); EOSINOPHILS % (AUTO) 1 % (0-10); HEMATOCRIT 35 % (35-52); HEMOGLOBIN 11.1 g/dL (11.5-16.0); LYMPHOCYTES # (AUTO) 1.3 10^3/uL (1.0-4.0); LYMPHOCYTES % (AUTO) 9 % (12-44); MEAN CORPUSCULAR HEMOGLOBIN 28 pg (25-34); MEAN CORPUSCULAR HGB CONC 32 g/dL (32-36); MEAN CORPUSCULAR VOLUME 87 fL (80-99); MEAN PLATELET VOLUME 8.6 fL (9.0-12.2); MONOCYTES # (AUTO) 2.2 10^3/uL (0.0-1.0); MONOCYTES % (AUTO) 16 % (0-12); NEUTROPHILS # (AUTO) 10.4 10^3/uL (1.8-7.8); NEUTROPHILS % (AUTO) 74 % (42-75); PLATELET COUNT 435 10^3/uL (130-400); WHITE BLOOD COUNT 14.1 10^3/uL (4.3-11.0)
[2022-11-22] MEDS ORDERED: CATHETER FLUSH 10 ML SYR IVP SCH (06:00)
[2022-11-22 06:14] LABS: POTASSIUM 3.4 MMOL/L (3.6-5.0)
[2022-11-22 06:15] LABS: CALCIUM 8.9 MG/DL (8.5-10.1)
[2022-11-22 06:19] LABS: CREATININE SERUM 0.82 MG/DL (0.60-1.30)
[2022-11-22] MEDS ORDERED: LEVOTHYROXINE 75 MCG (LEVOTHROID) TABLET PO SCH (06:30)
[2022-11-22 07:10] VITALS: BP 109/65
[2022-11-22] MEDS: SERTRALINE 100 MG (ZOLOFT) TAB PO SCH (08:22)
[2022-11-22] MEDS ORDERED: lisINopril 10 MG (PRINIVIL) TABLET PO SCH (09:00)
[2022-11-22 11:18] VITALS: BP 87/52
[2022-11-22 11:20] VITALS: BP 96/58
--- NOTE | 2022-11-22 11:29 | Short Stay Summary-Hospitalist ---
History of Present Illness HPI/Chief Complaint Chief complaint: Multiple liver abscesses HPI: This is a 32-year-old female [facility] patient who was admitted due to no EMS transport to for multiple liver abscesses noted on CT scan. She follows with liver specialist up at and they had secured a bed because she needed interventional radiology to drain the abscesses but there was no EMS transport so she was admitted. Zosyn maintained. Patient remained stable. Liver labs are stable. was contacted again and bed was secured and she will go private vehicle. Source: patient, family Date Seen 11/22/22 Time Seen by a Provider: 11:00 Attending Physician Cruz Crook DO PCP Admitting Physician: Ame Bruce MD Attending Physician: Corrina Merrill DO Referring Physician Date of Admission Nov 21, 2022 at 20:57 Home Medications & Allergies Home Medications Reviewed patient Home Medication Reconciliation performed by pharmacy medication reconciliations equine pharmacology technician and/or nursing. Patients Allergies have been reviewed. Allergies Allergies Coded Allergies cefaclor (Verified Allergy, Mild, HIVES, 07/20/18) Past Zzjurgd-Vqylco-Uytiak Hx Patient Social History Marrital Status: single Employed/Student: unemployed Tobacco Use?: No Use of E-Cig and/or Vaping dev: Unable to obtain Substance use?: Unable to obtain Alcohol Use?: Unable to obtain Pt feels they are or have been: No Immunizations Up To Date Date of Influenza Vaccine: Sep 15, 2017 Seasonal Allergies Seasonal Allergies: Yes Current Status status: No Advance Directives: No Communicates: Gestures, Points, Verbally Primary Language: Norwegian Preferred Spoken Language: Norwegian Is interpretation needed?: No Past Medical History Surgeries: Tonsillectomy Hypertension Headaches /Migraines, Seizure Disorder Sexually Transmitted Disease: No HIV/AIDS: No Liver Disease/Jaundice Loss of Vision: Bilateral Hearing Impairment: Denies Anxiety, Depression Adverse Reaction/Blood Tranf: No (N/A) Review of Systems Constitutional: see HPI, malaise, weakness Physical Exam Physical Exam Vital Signs Vital Signs - First Documented 11/21/22 11/21/22 11/21/22 16:18 17:09 21:51 Temp 37.1 Pulse 129 Resp 18 B/P (MAP) 113/64 (80) Pulse Ox 95 O2 Delivery Room Air Capillary Refill : Height, Weight, BMI Height: 5'8.00" Weight: 301lbs. 7.0oz. [id number]; 39.89 BMI Method: General Appearance: No Apparent Distress, Chronically ill, Obese Respiratory: Lungs Clear, Normal Breath Sounds Cardiovascular: Regular Rate, Rhythm Neurologic/Psychiatric: Alert, Oriented x3, No Motor/Sensory Deficits, Normal Mood/Affect Results Results/Procedures Labs Laboratory Tests 11/21/22 16:24 11/22/22 05:42 Patient resulted labs reviewed. Short Stay Diagnosis Discharge Diagnosis-Short Stay Admission Diagnosis Assessment: Multiple liver abscesses in need of interventional radiology Chronic liver disease suspected Louise and fatty liver Obesity Plan: Discharged to by private vehicle Final Discharge Diagnosis Assessment: Multiple liver abscesses in need of interventional radiology Chronic liver disease suspected Louise and fatty liver Obesity Plan: Discharged to by private vehicle Conclusion Plan Discharge home CORRINA MERRILL DO Nov 22, 2022 11:29
[2022-11-22 11:36] LABS: ALBUMIN 3.2 GM/DL (3.2-4.5)
[2022-11-22 11:38] LABS: TOTAL PROTEIN 6.5 GM/DL (6.4-8.2)
[2022-11-22 11:44] LABS: BILIRUBIN,DIRECT 0.6 MG/DL (0.0-0.3); BILIRUBIN,INDIRECT 0.4 MG/DL
[2022-11-22] MEDS ORDERED: NF-LAMO200 PO (12:01)
[2022-11-22] MEDS ORDERED: IBUP-2185 PO (12:01)
[2022-11-22] MEDS ORDERED: PROP20TA5 PO (12:01)
[2022-11-22] MEDS ORDERED: VORT20TA PO (12:01)
[2022-11-22] MEDS ORDERED: PANT20TA18 PO (12:01)
[2022-11-22] MEDS ORDERED: ZONI100C79 PO (12:01)
[2022-11-22] MEDS ORDERED: BIOT25007 PO (12:01)
[2022-11-22] MEDS ORDERED: CHOL20003 PO (12:01)
[2022-11-22] MEDS ORDERED: DOCU100C37 PO (12:01)
[2022-11-22] MEDS ORDERED: IBUP-1780 PO (12:04)
[2022-11-22] MEDS ORDERED: PIPE4.5F IV (12:10)
[2022-11-22 13:08] VITALS: BP 96/58
== END 2022-11-22 12:09 | disposition other institution (70) ==
LOC: EDUNIT# 16:12 → ER 16:13 → UNDOADMOB 20:57 → 4TH 20:57 → UNDOADMOB 21:20 → 4TH 21:20 → UNDODISOB 11-22 12:09
PROVIDERS: ADMIT Family Medicine; ATTEND Internal Medicine
DX: K75.0 Abscess of liver (principal); K76.9 Liver disease, unspecified; E66.9 Obesity, unspecified; F84.0 Autistic disorder; Z68.39 Body mass index [BMI] 39.0-39.9, adult
CPT/HCPCS: 74176; 80048; 80053; 80076; 81000; 83605; 83690; 85007; 85025; 85027; 85610; 85730; 87040; 87088; 96376 ×2; 99284; G0378; 36415

== ENCOUNTER → 2023-03-03 | Outpatient (CLI) | payer MEDICARE, MEDICAID ==
[~2023-03-03] MED LIST changes: +BIOT25007 PO; +CHOL20003 PO; +GADOTERATE 0.5 MMOL/ML (CLARISCAN) 20 ML VIAL IV ONE; +IBUP-1780 PO; +IBUP-2185 PO; -MELA1TAB20 PO; +MELA1TAB72 PO; +NF-LAMO200 PO; +PANT20TA18 PO; +PIPE4.5F IV; +PROP20TA5 PO; +VORT20TA PO; +ZONI100C79 PO
--- NOTE | 2023-03-03 13:21 | Diagnostic Imaging Report ---
EXAMINATION: MRI of the abdomen with and without contrast. TECHNIQUE: Multiplanar, multisequence MR images of the abdomen were obtained with and without intravenous contrast. HISTORY: Benign neoplasm of liver. COMPARISON: CT abdomen and pelvis from 11/21/2022. FINDINGS: MRI requires patient to hold the breath to minimize artifact to allow for adequate spatial resolution. Patient had extreme difficulty holding breath so the majority of the acquired sequences are degraded by patient respiratory motion artifact. Liver: Allowing for motion artifact, there are potential changes from prior surgery within the right hepatic lobe. Alternatively, there is an area of irregular T2 hyperintensity with peripheral hypoenhancement present, and this may represent an area of previously treated abscess. More definitive assessment is suboptimal due to the respiratory motion artifact. No steatosis or cirrhosis. Ducts: No biliary ductal dilation. Gallbladder: Normal. Pancreas: Normal. Spleen: Normal. Adrenals: Normal. Kidneys: No suspicious lesions. No hydronephrosis. Bowel: Normal. Other: No lymphadenopathy. Visualized portions of the thorax are normal. No suspicious osseous lesions. IMPRESSION: 1. Unfortunately, this patient is not a good candidate for MRI of the abdomen as it requires breath-holding. Patient had extreme difficulty holding breath so there is a large amount of motion artifact on all of the acquired series. 2. Allowing for this, the posterior aspect of the right hepatic lobe has an abnormal appearance with architectural distortion and irregular area of potential fluid signal with a rim of hypoenhancement. This may represent an area of residual and/or treated infection. 3. I would recommend the patient to undergo CT of the abdomen based on the liver protocol in the future as MRI is suboptimal in this patient. Dictated by: Dictated on workstation # [id number]
== END ==
LOC: RAD 09:01
PROVIDERS: ATTEND Internal Medicine
DX: D13.4 Benign neoplasm of liver (principal)
CPT/HCPCS: 74183

== ENCOUNTER 2023-03-19 12:37 | Outpatient (RCR) | payer MEDICARE, MEDICAID ==
[~2023-03-19 12:37] MED LIST changes: -GADOTERATE 0.5 MMOL/ML (CLARISCAN) 20 ML VIAL IV ONE
[2023-03-19 13:48] LABS: BASOPHILS # (AUTO) 0.1 10^3/uL (0.0-0.1); BASOPHILS % (AUTO) 1 % (0-10); EOSINOPHILS # (AUTO) 0.9 10^3/uL (0.0-0.3); EOSINOPHILS % (AUTO) 14 % (0-10); HEMATOCRIT 47 % (35-52); HEMOGLOBIN 15.5 g/dL (11.5-16.0); LYMPHOCYTES # (AUTO) 1.7 10^3/uL (1.0-4.0); LYMPHOCYTES % (AUTO) 28 % (12-44); MEAN CORPUSCULAR HEMOGLOBIN 29 pg (25-34); MEAN CORPUSCULAR HGB CONC 33 g/dL (32-36); MEAN CORPUSCULAR VOLUME 87 fL (80-99); MEAN PLATELET VOLUME 10.6 fL (9.0-12.2); MONOCYTES # (AUTO) 0.4 10^3/uL (0.0-1.0); MONOCYTES % (AUTO) 7 % (0-12); NEUTROPHILS # (AUTO) 2.9 10^3/uL (1.8-7.8); NEUTROPHILS % (AUTO) 49 % (42-75); PLATELET COUNT 352 10^3/uL (130-400)
== END 2023-03-30 | disposition home or self-care (01) ==
LOC: ONC 12:37
PROVIDERS: ATTEND Internal Medicine Hematology & Oncology
DX: D75.839 Thrombocytosis, unspecified (principal); E03.9 Hypothyroidism, unspecified; I10 Essential (primary) hypertension; E66.01 Morbid (severe) obesity due to excess calories
CPT/HCPCS: 36415; 85025

== ENCOUNTER 2023-04-16 17:49 | Emergency (ER) | payer MEDICARE, MEDICAID ==
[~2023-04-16] VITALS: Ht 160 cm; Wt 100.0 kg
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
[2023-04-16 18:19] LABS: BASOPHILS % (AUTO) 1 % (0-10); EOSINOPHILS # (AUTO) 0.9 10^3/uL (0.0-0.3); EOSINOPHILS % (AUTO) 11 % (0-10); HEMATOCRIT 45 % (35-52); HEMOGLOBIN 14.8 g/dL (11.5-16.0); LYMPHOCYTES # (AUTO) 2.1 10^3/uL (1.0-4.0); LYMPHOCYTES % (AUTO) 25 % (12-44); MEAN CORPUSCULAR HEMOGLOBIN 28 pg (25-34); MEAN CORPUSCULAR HGB CONC 33 g/dL (32-36); MEAN CORPUSCULAR VOLUME 86 fL (80-99); MEAN PLATELET VOLUME 9.7 fL (9.0-12.2); MONOCYTES # (AUTO) 0.6 10^3/uL (0.0-1.0); MONOCYTES % (AUTO) 7 % (0-12); NEUTROPHILS # (AUTO) 4.8 10^3/uL (1.8-7.8); NEUTROPHILS % (AUTO) 57 % (42-75); PLATELET COUNT 365 10^3/uL (130-400); WHITE BLOOD COUNT 8.5 10^3/uL (4.3-11.0)
[2023-04-16 18:38] LABS: ALBUMIN 4.2 GM/DL (3.2-4.5); CHLORIDE 108 MMOL/L (98-107); POTASSIUM 3.5 MMOL/L (3.6-5.0); SODIUM 141 MMOL/L (135-145)
[2023-04-16 18:40] LABS: CALCIUM 9.8 MG/DL (8.5-10.1)
[2023-04-16 18:41] LABS: GLUCOSE 71 MG/DL (70-105); TOTAL PROTEIN 7.7 GM/DL (6.4-8.2)
[2023-04-16 18:42] LABS: CARBON DIOXIDE 22 MMOL/L (21-32)
[2023-04-16 18:43] LABS: BILIRUBIN,TOTAL 0.3 MG/DL (0.1-1.0)
[2023-04-16 18:45] LABS: ALKALINE PHOSPHATASE 615 U/L (40-136); GFR ESTIMATED 100
[2023-04-16 18:46] LABS: BUN/CREATININE RATIO 18
[2023-04-16 18:47] LABS: SALICYLATE < 5.0 MG/DL (5.0-20.0)
[2023-04-16 18:48] LABS: ALANINE AMINOTRANSFERASE 149 U/L (0-55)
[2023-04-16 18:49] LABS: ACETAMINOPHEN < 10 UG/ML (10-30)
[2023-04-16 18:59] LABS: BILIRUBIN,URINE NEGATIVE (NEGATIVE); CLARITY,URINE CLEAR; COLOR,URINE YELLOW; GLUCOSE, URINE (UA) NEGATIVE (NEGATIVE); KETONES,URINE NEGATIVE (NEGATIVE); LEUKOCYTE ESTERASE ,URINE NEGATIVE (NEGATIVE); NITRITE,URINE NEGATIVE (NEGATIVE); PROTEIN,URINE NEGATIVE (NEGATIVE)
[2023-04-16 19:04] LABS: HCG,QUALITATIVE URINE NEGATIVE (NEGATIVE)
[2023-04-16 19:13] LABS: AMPHETAMINE SCREEN, URINE NEGATIVE (NEGATIVE); BARBITURATE SCREEN URINE NEGATIVE (NEGATIVE); BENZODIAZEPINES SCREEN URINE POSITIVE (NEGATIVE); CANNABINOID SCREEN, URINE NEGATIVE (NEGATIVE); COCAINE SCREEN URINE NEGATIVE (NEGATIVE); METHADONE STAT NEGATIVE (NEGATIVE); OPIATE SCREEN URINE NEGATIVE (NEGATIVE); OXYCODONE STAT NEGATIVE (NEGATIVE); PROPOXYPHENE STAT NEGATIVE (NEGATIVE); TRICYCLIC ANTIDEPRESSANTS SCRE NEGATIVE (NEGATIVE)
[2023-04-16 19:22] LABS: AMORPHOUS SEDIMENT,UR RARE AMOR URATES /LPF; BACTERIA,URINE FEW /HPF; RBC,URINE 0-2 /HPF; SQUAMOUS EPITHELIAL CELL,UR >50 /HPF; WBC,URINE 0-2 /HPF
[2023-04-16 20:27] LABS: FREE T4 (FREE THYROXINE) 1.01 NG/DL (0.70-1.48)
[2023-04-16] MEDS ORDERED: VORT10TA PO (21:33)
[2023-04-16 21:43] VITALS: BP 153/99
== END 2023-04-16 21:45 | disposition home or self-care (01) ==
LOC: ER 17:49 → EDUNIT# 17:49 → ER 21:45
DX: R45.851 Suicidal ideations (principal); R45.6 Violent behavior; R74.01 Elevation of levels of liver transaminase levels; F84.0 Autistic disorder; F32.A Depression, unspecified; Z28.310 Unvaccinated for COVID-19
CPT/HCPCS: 80053; 80306; 81000; 84439; 84443; 84703; 85025; 93041; G0480 ×3; 36415; 80320; 80329; 93005